=== PATIENT | female | born 1945 | race Caucasian/White ===

== ENCOUNTER 2018-11-12 15:00 | Outpatient (CLI) | payer MEDICARE, OTHER ==
--- NOTE | 2018-11-12 15:49 | RAD ---
THREE VIEWS RIGHT SHOULDER: Comparison: None. History: Shoulder pain. FINDINGS: Three views of the right shoulder shows no evidence of acute fracture or dislocation. No significant degenerative changes are seen. Visualized right thorax is unremarkable. IMPRESSION: No evidence of acute abnormality. POS: C
== END 2018-11-12 15:01 | disposition home or self-care (01) ==
LOC: BICRAD 15:00
PROVIDERS: ATTEND Family Medicine
DX: M25.511 Pain in right shoulder (principal)

== ENCOUNTER 2019-09-20 20:16 | Inpatient (IN) | payer MEDICARE, OTHER ==
[2019-09-20 21:09] LABS: #Lymphocytes 0.7 thou/uL (1.20-3.40); #Neutrophils 5.5 thou/uL (1.40-6.50); %Basophils 0.3 % (0.0-1.0); %Eosinophils 0.1 % (0.0-10.0); %Monocytes 13.2 % (0.0-10.0); %Neutrophils 76.4 % (42.0-75.0); Hemoglobin 12.4 g/dL (12.0-16.0); Mean Corpuscular HGB CONC 33.3 g/dL (32.0-36.0); Mean Corpuscular Hemoglobin 33.3 pg (27.0-31.0); Mean Corpuscular Volume 99.9 fL (78.0-98.0); Mean Platelet Volume 9.2 fL (7.4-10.4); Platelet Count 174 thou/uL (130-400); RBC Distribution Width 14.7 % (11.5-14.5); Red Blood Cell (RBC) Count 3.72 mill/uL (4.20-5.40); White Blood Cell (WBC) Count 7.2 thou/uL (4.8-10.8)
--- NOTE | 2019-09-20 21:24 | RAD ---
FOUR VIEWS RIGHT KNEE: 09/20/19 COMPARISON: None. HISTORY: Slipped out of bed this evening with right knee pain. FINDINGS: Four views of the right knee shows no evidence of acute fracture or dislocation. Moderate to severe t ricompartmental joint space narrowing and osteophyte formation is seen, greatest in the lateral femor otibial compartment. No knee effusion is seen. IMPRESSION: Severe right knee osteoarthritis without acute osseous abnormality. POS: EAA
[2019-09-20 21:29] LABS: Bacteria/HPF 4+ HPF (None Seen); Bilirubin Negative (Negative); Blood, Urine 2+ (Negative); Clarity Extra Turbid (Clear); Glucose, Urine (Dipstick) Normal (Negative); Leukocyte 500 Leu/uL (Negative); Nitrite 2+ (Negative); Protein, Urine (Dipstick) 70 mg/dL (Neg-Trace); RBC/HPF 21-50 HPF (0-3); Squamous Epithelial None Seen HPF (0-3); Urobilinogen Normal mg/dL (Less than 2); WBC/HPF Greater than 50 HPF (0-3)
--- NOTE | 2019-09-20 21:34 | RAD ---
SINGLE VIEW OF THE CHEST: 09/20/19 COMPARISON: 06/02/15 HISTORY: Slipped out of bed this evening. Fever and chills. FINDINGS: Single view of the chest shows an enlarged cardiomediastinal silhouette. Increased interstitial pat ngs are present. There is no evidence of consolidation, mass, or pleural effusion. Degenerative mcmillan es are seen in the spine. IMPRESSION: Cardiomegaly. POS: EAA
[2019-09-20 21:43] LABS: ALT (SGPT) Less than 7 U/L (8-55); AST (SGOT) 9 U/L (5-34); Albumin 4.2 g/dL (3.4-4.8); Alkaline Phosphatase 78 U/L (40-110); Anion Gap 13 mmol/L (10-20); BUN (Urea Nitrogen) 19 mg/dL (9.8-20.1); Bilirubin, Total 0.6 mg/dL (0.2-1.2); CK (CPK) 27 U/L (29-168); Calc. Creatinine Clearance 0 mL/min (70-130); Calcium 9.2 mg/dL (7.8-10.44); Carbon Dioxide 26 mmol/L (23-31); Chloride 102 mmol/L (98-107); Estimated GFR-MDRD 75; Globulin 2.3 g/dL (2.4-3.5); Glucose 117 mg/dL (83-110); Potassium 4.3 mmol/L (3.5-5.1); Protein, Total 6.5 g/dL (6.0-8.3); Sodium 137 mmol/L (136-145)
[2019-09-20] MEDS ORDERED: cefTRIAXone\\ROCEPHIN 2 GM VIAL ONE (21:45)
[2019-09-20] MEDS ORDERED: Vancomycin 1 GM/200 ML BAG ONE (21:46)
--- NOTE | 2019-09-20 22:32 | PDOC.FPRHP ---
- History of Present Illness Chief Complaint: Fever History of Present Illness: This is a 74 yo female with a pmh parkinsons, asthma, copd, GERD, scooter for mobility who presents to the ER with a cc of fever. She states she was in he usual state of kelvin when she began feeling sick at 6 PM. She reports feeling fevers and chills accompanied by a headache. She denies nausea, vomiting, abdominal pain, changes in senses, dysuria, frequency, CVA tenderness, SOB or suprapubic pain. She states that she does not get UTIs frequently. She denied confusion or neck pain Frozen should from balloon volleyball in November that is still bothering her despite PT and pain cream ED Course: NS 2L Rocephin 2g Vancomycin 1 g - Home Medications Medication Instructions Recorded Confirmed Type Aspirin [Ecotrin] 81 mg PO DAILY 09/20/19 09/20/19 History Carbidopa/Levodopa [Carbidopa-Levo 1 each PO TID 09/20/19 09/20/19 History 10-100 mg Odt] Celecoxib [Celebrex] 100 mg PO DAILY 09/20/19 09/20/19 History Fluticasone/Salmeterol [Advair 1 inh IH BID 09/20/19 09/20/19 History Diskus 100/50] Lidocaine 5% Patch [Lidoderm 5% 1 patch TD DAILY 09/20/19 09/20/19 History Patch] Pantoprazole Sodium 20 mg PO DAILY 09/20/19 09/20/19 History - History PMHx: GERD, COPD, ashthma, parkinson disease PSHx: Cholecystectomy, surgical tubal ligation FHx: noncontributory Social: Denies SARBJIT, lives in independent apartment - Review of Systems General: reports: fever/chills. denies: weight/appetite/sleep changes, night sweats, fatigue Eyes: denies: eye pain, vision changes ENT: denies: nasal congestion, rhinorrhea Respiratory: denies: cough, congestion, shortness of breath, exercise intolerance Cardiovascular: denies: chest pain, palpitation, edema, paroxysmal nocturnal dyspnea, orthopnea Gastrointestinal: denies: nausea, vomiting, diarrhea, constipation, abdominal pain, GI bleeding Genitourinary: denies: incontinence, dysuria, polyuria, discharge Skin: denies: rashes, lesions, jaundice, itching Musculoskeletal: reports: pain (right shoulder), tenderness (right shoulder). denies: stiffness, swelling Neurological: reports: other (headache). denies: numbness, syncope, seizure, weakness Psychological: denies: anxiety, depression - Vital signs BP: 120/84 HR: 111 RR: 24 Tmax: 98.9 Pox: 95% on L Wt: 113 - Physical Exam Constitutional: NAD, awake, alert and oriented, well developed HEENT: normocephalic and atraumatic, PERRLA, EOMI, grossly normal vision, grossly normal hearing, MMM Neck: supple, trachea midline, no JVD Chest: no-tender to palpation Heart: RRR, normal S1/S2, pulses present, no edema, other (2/6 systolic murmur) Lungs: CTAB, no respiratory distress, good air movement, no rales/rhonchi, no wheezing, no retractions Abdomen: soft, non-tender, bowel sounds present, no masses/distention Musculoskeletal: normal structure, normal tone, other (no CVA tenderness) Neurological: no focal deficit, CN II-XII intact Skin: good turgor, capillary refill <2 seconds Heme/Lymphatic: no unusual bruising or bleeding Psychiatric: normal mood and affect FMR H&P: Results - Labs Result Diagrams: 09/21/19 06:19 09/21/19 06:19 Lab results: WBC 7.2 thou/uL (4.8-10.8) 09/20/19 20:50 Hgb 12.4 g/dL (12.0-16.0) 09/20/19 20:50 Hct 37.2 % (36.0-47.0) 09/20/19 20:50 MCV 99.9 fL (78.0-98.0) H 09/20/19 20:50 Plt Count 174 thou/uL (130-400) 09/20/19 20:50 Neutrophils % 76.4 % (42.0-75.0) H 09/20/19 20:50 Sodium 137 mmol/L (136-145) 09/20/19 20:50 Potassium 4.3 mmol/L (3.5-5.1) 09/20/19 20:50 Chloride 102 mmol/L (98-107) 09/20/19 20:50 Carbon Dioxide 26 mmol/L (23-31) 09/20/19 20:50 BUN 19 mg/dL (9.8-20.1) 09/20/19 20:50 Creatinine 0.75 mg/dL (0.6-1.1) 09/20/19 20:50 Glucose 117 mg/dL (83-110) H 09/20/19 20:50 Lactic Acid 0.7 mmol/L (0.5-2.2) 09/20/19 20:50 Calcium 9.2 mg/dL (7.8-10.44) 09/20/19 20:50 Total Bilirubin 0.6 mg/dL (0.2-1.2) 09/20/19 20:50 AST 9 U/L (5-34) 09/20/19 20:50 ALT Less than 7 U/L (8-55) L 09/20/19 20:50 Alkaline Phosphatase 78 U/L (40-110) 09/20/19 20:50 Creatine Kinase 27 U/L (29-168) L 09/20/19 20:50 Serum Total Protein 6.5 g/dL (6.0-8.3) 09/20/19 20:50 Albumin 4.2 g/dL (3.4-4.8) 09/20/19 20:50 Urine Ketones Negative mg/dL (Negative) 09/20/19 21:08 Urine Blood 2+ (Negative) A 09/20/19 21:08 Urine Nitrite 2+ (Negative) A 09/20/19 21:08 Ur Leukocyte Esterase 500 Nakita/uL (Negative) A 09/20/19 21:08 Urine RBC 21-50 HPF (0-3) A 09/20/19 21:08 Urine WBC Greater than 50 HPF (0-3) A 09/20/19 21:08 Ur Squamous Epith Cells None Seen HPF (0-3) 09/20/19 21:08 Urine Bacteria 4+ HPF (None Seen) A 09/20/19 21:08 - Radiology Interpretation Chest x-ray Status: image reviewed by me, report reviewed by me (cardiomegaly) FMR H&P: A/P - Problem List (1) UTI (urinary tract infection) Current Visit: Yes Status: Acute - Plan Acute complicated UTI -Admit to medical -S/P vanc and rocgunnerhin, s/p 2L NS bolus -Starting Zosyn (09/19) -Pending Urine cultures Sepsis 2/2 above -Blood cultures -As above Covid r/o -Pt deemed covid risk based on self quarantine and fever, pending swab COPD, at baseline -Continue home advair GERD -Continue home protonix Parkinson disease -Continue home carbidopa-levodopa Right shoulder pain -Continue celebrex and lidocaine gel Code: Full Prophylaxis: Protonix and lovenox Family: none at bedside Diet: Regular Fluids: 2L LR at 100ml/hr Disposition: DC in 2-3 days PCP: Dr. Varma Addendum - Attending - Attending Attestation Date/Time: 09/21/19 1017 I personally evaluated the patient and discussed the management with Dr. Lyons. I agree with the History, Examination, Assessment and Plan documented above with any addition or exceptions noted below. Seems to be clearly complicated UTI in light of UA. She has relatively few symptoms besides malaise and fever. She does not have cough or sore throat. Continue antibiotics, await cultures.
[2019-09-20] MEDS ORDERED: Ondansetron ODT 4 MG TAB PO PRN (23:29)
[2019-09-20] MEDS ORDERED: Ondansetron PF 4 MG/2 ML Vial IVP PRN (23:29)
[2019-09-20] MEDS ORDERED: Acetaminophen 650 MG Suppository PR PRN (23:29)
[2019-09-20 23:53] VITALS: BMI 38.2
[2019-09-20] MEDS ORDERED: Piperacillin/Tazobactam 4.5 GM in Sodium Chloride 0.9% 100 ML IVPB SCH (23:59)
[2019-09-21] MEDS: Lactated Ringer's 1,000 ML IV SCH ×2 (00:38→07:56)
[2019-09-21] MEDS: Lidocaine 5% Patch TD SCH (00:40)
[2019-09-21] MEDS: Acetaminophen 325 MG TAB PO PRN ×3 (00:40→20:34)
[2019-09-21] MEDS ORDERED: Piperacillin/Tazobactam 3.375 GM in Sodium Chloride 0.9% 100 ML IVPB SCH (06:00)
[2019-09-21] MEDS: Mometasone 100 MCG/Formoterol 5 MCG 120 PUFF INHALER INH SCH ×2 (06:10→18:16)
[2019-09-21 06:30] LABS: Band 4 % (5-11); Hemoglobin 11.7 g/dL (12.0-16.0); Lymphocytes 23 % (21-51); MDiff Complete? YES; Macrocytosis SLIGHT = 6-15 cells (100X) (0-5/hpf); Mean Corpuscular HGB CONC 32.3 g/dL (32.0-36.0); Mean Platelet Volume 8.9 fL (7.4-10.4); Monocytes 14 % (0-10); Neutrophil 59 % (42-75); Platelet Count 140 thou/uL (130-400); Platelet Morphology Comment Appears Adequate; RBC Distribution Width 14.6 % (11.5-14.5); Red Blood Cell (RBC) Count 3.54 mill/uL (4.20-5.40); White Blood Cell (WBC) Count 4.5 thou/uL (4.8-10.8)
[2019-09-21 06:48] LABS: Anion Gap 11 mmol/L (10-20); BUN (Urea Nitrogen) 14 mg/dL (9.8-20.1); Calc. Creatinine Clearance 114 mL/min (70-130); Calcium 8.3 mg/dL (7.8-10.44); Carbon Dioxide 27 mmol/L (23-31); Chloride 109 mmol/L (98-107); Estimated GFR-MDRD 89; Glucose 101 mg/dL (83-110); Potassium 3.8 mmol/L (3.5-5.1); Sodium 143 mmol/L (136-145)
--- NOTE | 2019-09-21 07:18 | PDOC.FM ---
- Subjective Subjective: pt resting in bed, reports back pain associated with laying in bed. no cva tenderness, feeling feverish. - Objective Vital Signs & Weight: Vital Signs (12 hours) Temp Pulse Resp BP Pulse Ox 09/21/19 06:10 95 09/21/19 04:00 98.6 F 99 18 122/76 95 09/21/19 01:10 98.7 F 96 09/20/19 23:05 99.7 F H 106 H 18 112/68 96 Weight Weight 97.8 kg I&O: 09/20/19 09/21/19 09/22/19 06:59 06:59 06:59 Intake Total 900 Output Total 1500 Balance -600 Result Diagrams: 09/21/19 06:19 09/21/19 06:19 Phys Exam - Physical Examination Constitutional: NAD HEENT: moist MMs Neck: supple Gastrointestinal: soft, non-tender Musculoskeletal: pulses present Neurological: moves all 4 limbs Psychiatric: normal affect Skin: no rash Dx/Plan (1) COPD (chronic obstructive pulmonary disease) Status: Acute (2) Parkinsons Code(s): G20 - PARKINSON'S DISEASE Status: Acute (3) UTI (urinary tract infection) Status: Acute - Plan Plan: sepsis 2/2 UTI -fever, tachycardia, + UA on admission. vanc and rocephin given -continue rocephin -Pending U/Bcx, procal Covid r/o -Pt deemed covid risk based on self quarantine and fever, pending swab COPD, at baseline -Continue home advair GERD -Continue home protonix Parkinson disease -Continue home carbidopa-levodopa Right shoulder pain -Continue celebrex and lidocaine gel Code: Full Prophylaxis: lovenox Disposition: continue abx until cx results, then likely dc, 1-2 days. Addendum - Attending - Attending Attestation Date/Time: 09/21/19 [id number] I personally evaluated the patient and discussed the management with Dr. Jackman. I agree with the History, Examination, Assessment and Plan documented above with any addition or exceptions noted below. Patient here for sepsis 2/2 suspected UTI. Continue abx, await cultures. COVID pending but low suspicion for infection.
[2019-09-21] MEDS: CeleCOXIB 100 MG CAP PO SCH (07:55)
[2019-09-21] MEDS: Aspirin 81 mg Enteric Coated Tablet PO SCH (07:56)
[2019-09-21] MEDS: Enoxaparin Sodium 40 MG/0.4 ML SYRINGE SC SCH (07:56)
[2019-09-21] MEDS ORDERED: Lidocaine 5% Patch TD SCH (09:00)
[2019-09-21] MEDS: Carbidopa/Levodopa 10-100 mg Tablet PO SCH ×3 (10:04→20:34)
[2019-09-21] MEDS ORDERED: Lidocaine Patch Removal 1 EACH TOP SCH (13:00)
--- NOTE | 2019-09-21 13:03 | EKG ---
Test Reason : Blood Pressure : / mmHG Vent. Rate : 122 BPM Atrial Rate : 122 BPM P-R Int : 144 ms QRS Dur : 064 ms QT Int : 302 ms P-R-T Axes : 073 047 075 degrees QTc Int : 430 ms Sinus tachycardia Otherwise normal ECG Confirmed by LOLI RAY DO ([id number]), photograph editor JESUS SHANE ([id number]) on 09/21/2019 1:02:58 PM Referred By: LESTER RAY Confirmed By:LOLI RAY DO
[2019-09-21 16:32] LABS: SARS-CoV-2 MS2 Positive; SARS-CoV-2 N Gene Negative; SARS-CoV-2 S Gene Negative; SARS-CoV-2 orf1ab Negative
[2019-09-21] MEDS ORDERED: Escitalopram Oxalate 20 mg Tablet PO SCH (21:30)
[2019-09-21] MEDS ORDERED: Amantadine HCl 100 mg Capsule PO SCH (21:30)
[2019-09-21] MEDS ORDERED: cefTRIAXone\\ROCEPHIN 1 GM in Sodium Chloride 0.9% 100 ML IVPB SCH (22:00)
[2019-09-22] MEDS: Lidocaine 5% Patch TD SCH (03:27)
[2019-09-22] MEDS: Mometasone 100 MCG/Formoterol 5 MCG 120 PUFF INHALER INH SCH (07:02)
--- NOTE | 2019-09-22 07:18 | PDOC.FM ---
- Subjective Subjective: pt reports back pain that is still bothering her, would really like to go home. denies fever/chills. lower abdominal pain - Objective Vital Signs & Weight: Vital Signs (12 hours) Temp Pulse Resp BP Pulse Ox 09/22/19 04:00 99.2 F 97 18 110/59 L 94 L 09/22/19 00:00 99.5 F 103 H 20 123/73 94 L 09/21/19 20:00 96 Weight Admit Weight 97.522 kg Weight 97.8 kg I&O: 09/21/19 09/22/19 09/23/19 06:59 06:59 06:59 Intake Total 900 Output Total 1500 1100 Balance -600 -1100 Result Diagrams: 09/22/19 05:47 09/22/19 05:48 Phys Exam - Physical Examination Constitutional: NAD HEENT: moist MMs Neck: no JVD Gastrointestinal: non-tender, no distention Musculoskeletal: pulses present Neurological: moves all 4 limbs Psychiatric: normal affect Skin: no rash Dx/Plan (1) COPD (chronic obstructive pulmonary disease) Status: Acute (2) Parkinsons Code(s): G20 - PARKINSON'S DISEASE Status: Acute (3) UTI (urinary tract infection) Status: Acute - Plan Plan: sepsis 2/2 UTI -fever, tachycardia, + UA on admission. vanc and rocephin given -continue rocephin -Pending U/Bcx, procal neg Covid r/o -neg COPD, at baseline -Continue home advair GERD -Continue home protonix Parkinson disease -Continue home carbidopa-levodopa Right shoulder pain -Continue celebrex and lidocaine gel Code: Full Prophylaxis: lovenox Disposition: await sensitivities, transition to oral. Addendum - Attending - Attending Attestation Date/Time: 09/22/19 1016 I personally evaluated the patient and discussed the management with Dr. Jackman. I agree with the History, Examination, Assessment and Plan documented above with any addition or exceptions noted below. Patient here for sepsis 2/2 UTI. She is improved. Waiting for sensitivities and hopefully discharging home later today on oral abx.
[2019-09-22 07:34] LABS: Hemoglobin 11.9 g/dL (12.0-16.0); Mean Corpuscular HGB CONC 32.6 g/dL (32.0-36.0); Mean Corpuscular Hemoglobin 33.4 pg (27.0-31.0); Mean Platelet Volume 9.5 fL (7.4-10.4); Platelet Count 149 thou/uL (130-400); RBC Distribution Width 14.5 % (11.5-14.5); Red Blood Cell (RBC) Count 3.57 mill/uL (4.20-5.40); White Blood Cell (WBC) Count 3.8 thou/uL (4.8-10.8)
[2019-09-22] MEDS ORDERED: Polyethylene Glycol 3350 17 GM Packet PO PRN (07:42)
[2019-09-22 07:51] LABS: Anion Gap 13 mmol/L (10-20); BUN (Urea Nitrogen) 10 mg/dL (9.8-20.1); Calc. Creatinine Clearance 121 mL/min (70-130); Calcium 8.6 mg/dL (7.8-10.44); Carbon Dioxide 25 mmol/L (23-31); Chloride 107 mmol/L (98-107); Estimated GFR-MDRD Greater than 90; Glucose 90 mg/dL (83-110); Potassium 3.9 mmol/L (3.5-5.1); Sodium 141 mmol/L (136-145)
[2019-09-22] MEDS: Aspirin 81 mg Enteric Coated Tablet PO SCH (08:19)
[2019-09-22] MEDS: Enoxaparin Sodium 40 MG/0.4 ML SYRINGE SC SCH (08:20)
[2019-09-22] MEDS: CeleCOXIB 100 MG CAP PO SCH (08:20)
[2019-09-22] MEDS ORDERED: Amantadine HCl 100 mg Capsule PO SCH (09:00)
[2019-09-22] MEDS ORDERED: Lidocaine 5% Patch TD SCH (09:00)
[2019-09-22 09:22] LABS: Band 2 % (5-11); Large Platelets SLIGHT; Lymphocytes 31 % (21-51); MDiff Complete? YES; Monocytes 10 % (0-10); Neutrophil 56 % (42-75); Platelet Morphology Comment Appears Adequate; Reactive Lymphocytes 1 % (0-10)
[2019-09-22 11:38] VITALS: BP 101/56; TEMP 99.5
[2019-09-22] MEDS: Carbidopa/Levodopa 10-100 mg Tablet PO SCH (12:46)
[2019-09-22] MEDS ORDERED: Escitalopram Oxalate 20 mg Tablet PO SCH (21:00)
[2019-09-22] MEDS ORDERED: Lidocaine Patch Removal 1 EACH TOP SCH (21:00)
== END 2019-09-22 14:57 | disposition home or self-care (01) | DRG 872 ==
LOC: ERS 20:16 → T4-B 23:41
PROVIDERS: ADMIT Emergency Medicine; ATTEND Emergency Medicine
DX: A41.9 Sepsis, unspecified organism (principal); N39.0 Urinary tract infection, site not specified; Z20.828 Contact with and (suspected) exposure to other viral communicable diseases; G20 Parkinson's disease; J44.9 Chronic obstructive pulmonary disease, unspecified; M25.561 Pain in right knee; M25.511 Pain in right shoulder; G89.29 Other chronic pain; K21.9 Gastro-esophageal reflux disease without esophagitis; Z90.49 Acquired absence of other specified parts of digestive tract; Z98.51 Tubal ligation status; Z79.899 Other long term (current) drug therapy; Z79.82 Long term (current) use of aspirin
CPT/HCPCS: 36415; 51701; 71045; 80048; 80053; 81003; 81015; 82550; 83605; 84145; 84484; 85025; 87040; 87077; 87086; 87186; 87635; 87804; 93005; 94760; 96365; A4353; J0696; J1650; J2543; J3370; J3490; U0003

== ENCOUNTER 2019-10-11 22:02 | Inpatient (IN) | payer MEDICARE ==
[~2019-10-11 22:02] MED LIST: Heparin 1,000 UNITS/ML VIAL ONE; Iopamidol-370 76% 500 ML 1 ML ONE
[2019-10-11 22:35] LABS: Mean Corpuscular HGB CONC 33.4 g/dL (32.0-36.0); Mean Corpuscular Hemoglobin 33.1 pg (27.0-31.0); Mean Corpuscular Volume 99.3 fL (78.0-98.0); Platelet Count 131 thou/uL (130-400); RBC Distribution Width 14.9 % (11.5-14.5); Red Blood Cell (RBC) Count 3.92 mill/uL (4.20-5.40); White Blood Cell (WBC) Count 3.8 thou/uL (4.8-10.8)
[2019-10-11] MEDS ORDERED: cefTRIAXone\\ROCEPHIN 2 GM VIAL ONE (22:35)
[2019-10-11 22:49] LABS: Bacteria/HPF None Seen HPF (None Seen); Bilirubin Negative (Negative); Blood, Urine 1+ (Negative); Clarity Clear (Clear); Glucose, Urine (Dipstick) Normal (Negative); Leukocyte 500 Leu/uL (Negative); Nitrite Negative (Negative); Protein, Urine (Dipstick) Negative (Neg-Trace); Squamous Epithelial 0-3 HPF (0-3); Urobilinogen Normal mg/dL (Less than 2); WBC/HPF Greater than 50 HPF (0-3)
[2019-10-11 22:50] LABS: ALT (SGPT) 48 U/L (8-55); AST (SGOT) 72 U/L (5-34); Albumin 4.2 g/dL (3.4-4.8); Alkaline Phosphatase 102 U/L (40-110); Anion Gap 13 mmol/L (10-20); BUN (Urea Nitrogen) 13 mg/dL (9.8-20.1); Bilirubin, Total 1.4 mg/dL (0.2-1.2); Calc. Creatinine Clearance 0 mL/min (70-130); Calcium 9.3 mg/dL (7.8-10.44); Carbon Dioxide 26 mmol/L (23-31); Chloride 102 mmol/L (98-107); Estimated GFR-MDRD 86; Globulin 2.4 g/dL (2.4-3.5); Glucose 121 mg/dL (83-110); Potassium 3.9 mmol/L (3.5-5.1); Protein, Total 6.6 g/dL (6.0-8.3); Sodium 137 mmol/L (136-145)
[2019-10-11 22:53] LABS: Band 11 % (5-11); Lymphocytes 5 % (21-51); MDiff Complete? YES; Monocytes 7 % (0-10); Neutrophil 76 % (42-75); Reactive Lymphocytes 1 % (0-10)
--- NOTE | 2019-10-11 22:55 | RAD ---
FRONTAL RADIOGRAPH CHEST: Date: 10/11/2019. COMPARISON: 09/20/2019. HISTORY: Urinary tract infection, fever. FINDINGS: Heart and mediastinal contours are stable. Stable increased linear interstitial density with pulmonar y hyperinflation. No focal consolidation or alveolar edema. IMPRESSION: No focal consolidation or alveolar edema. POS: [facility]
[2019-10-11] MEDS ORDERED: Enoxaparin Sodium 40 MG/0.4 ML SYRINGE SC SCH (23:45)
[2019-10-11] MEDS ORDERED: Ondansetron PF 4 MG/2 ML Vial IVP PRN (23:50)
[2019-10-11] MEDS ORDERED: Ondansetron ODT 4 MG TAB PO PRN (23:50)
[2019-10-11] MEDS ORDERED: Acetaminophen 650 MG Suppository PR PRN (23:50)
[2019-10-11] MEDS ORDERED: Calcium Carbonate 500 MG ChewTAB PO PRN (23:50)
[2019-10-11] MEDS ORDERED: Morphine 4 MG/ML VIAL ONE (23:53)
[2019-10-11] MEDS ORDERED: Vancomycin 1 GM/200 ML BAG ONE (23:53)
[2019-10-12] MEDS ORDERED: Lidocaine 5% Patch TD SCH (01:00)
--- NOTE | 2019-10-12 02:18 | PDOC.FPRHP ---
- History of Present Illness Chief Complaint: Fever, Back Pain History of Present Illness: 74 yo F comes in with concerns for Fever, UTI and back pain. Pt was recently d/ c for sepsis 2/2 UTI on 09/21. Urine cx then showed MDR e. coli. It was sens to bactrim which she was sent home with. Pt reports taking abx and getting better. States then 3 days later sx's returned. Pt followed up who px macrobid which again cx showed sens to. Pt reports continued to have fevers and get worse and thus presented to [facility]. Pt reports having lots of back pain at this time. Reports as sharp. Reports having fever. Pt reports having burning with urination. Denies any blood in urine. Denies any n/v/d/c. Denies any chest pain or SOB. Denies any rash or leg swelling. Pt reports having cough but it is chronic from her COPD. - Allergies/Adverse Reactions Allergies Allergy/AdvReac Type Severity Reaction Status Date / Time No Known Drug Allergies Allergy Verified 10/12/19 01:54 - Home Medications Medication Instructions Recorded Confirmed Type Aspirin [Ecotrin Low Strength] 81 mg PO DAILY 09/20/19 10/12/19 History Carbidopa/Levodopa [Carbidopa-Levo 0.5 tab PO TID 09/20/19 10/12/19 History 10-100 mg Odt] Celecoxib [Celebrex] 200 mg PO DAILY 09/20/19 10/12/19 History Pantoprazole Sodium 40 mg PO DAILY 09/20/19 10/12/19 History Amantadine HCl [Amantadine] 100 mg PO BID 09/21/19 10/12/19 History Escitalopram Oxalate [Lexapro] 10 mg PO HS 09/21/19 10/12/19 History Carbidopa/Levodopa 1 tab PO TID 10/12/19 10/12/19 History [Carbidopa-Levodopa 25-100 Tab] Ipratropium/Albuterol Sulfate 1 puff INH QID 10/12/19 10/12/19 History [Combivent Respimat Inhal [place]] Nitrofurantoin Monohyd/M-Cryst 100 mg PO BID 10/12/19 10/12/19 History [Macrobid] - History PMHx: GERD, COPD, ashthma, parkinson's disease PSHx: Cholecystectomy, surgical tubal ligation FHx: noncontributory Social: Denies any drinking, illicit drug use or current smoking, smoked in past. Lives independent in apartment. - Review of Systems General: reports: fever/chills. denies: weight/appetite/sleep changes, night sweats Eyes: denies: eye pain, vision changes ENT: denies: nasal congestion, rhinorrhea Respiratory: reports: cough (chronic cough). denies: congestion, shortness of breath, exercise intolerance Cardiovascular: denies: chest pain, palpitation, edema, orthopnea Gastrointestinal: denies: nausea, vomiting, diarrhea, constipation, abdominal pain, GI bleeding Genitourinary: reports: dysuria, polyuria. denies: incontinence Skin: denies: rashes, lesions, jaundice Musculoskeletal: reports: pain (reports back pain). denies: tenderness, stiffness, swelling Neurological: denies: numbness, weakness Psychological: denies: anxiety, depression - Vital signs BP: [178/75] HR: [122] RR: [30] Tmax: [101.8] Pox: [98]% on [RA] Wt: [96kg] - Physical Exam Constitutional: awake, alert and oriented, well developed -Constitutional: Pt in some distress from pain. Pt moving around in bed and can't get comfortable HEENT: normocephalic and atraumatic, grossly normal vision, grossly normal hearing Neck: supple, FROM, trachea midline Heart: no murmurs/rubs/gallops, pulses present -Heart: tachycadic, regular rhythm Lungs: CTAB, no respiratory distress, good air movement, no rales/rhonchi, no wheezing, no retractions Abdomen: soft, non-tender, bowel sounds present, no masses/distention, no hernias -Abdomen: Taylor sign negative, CVA tenderness noted bilaterally Musculoskeletal: ROM grossly normal Neurological: no focal deficit, normal sensation Skin: no rash/lesions, good turgor Heme/Lymphatic: no unusual bruising or bleeding Psychiatric: good judgment and insight, intact recent and remote memory FMR H&P: Results - Labs Result Diagrams: 10/12/19 03:56 10/12/19 03:56 Lab results: WBC 3.8 thou/uL (4.8-10.8) L 10/11/19 22:19 Hgb 13.0 g/dL (12.0-16.0) 10/11/19 22:19 Hct 38.9 % (36.0-47.0) 10/11/19 22:19 MCV 99.3 fL (78.0-98.0) H 10/11/19 22:19 Plt Count 131 thou/uL (130-400) 10/11/19 22:19 Band Neuts % (Manual) 11 % (5-11) 10/11/19 22:19 Sodium 137 mmol/L (136-145) 10/11/19 22:19 Potassium 3.9 mmol/L (3.5-5.1) 10/11/19 22:19 Chloride 102 mmol/L (98-107) 10/11/19 22:19 Carbon Dioxide 26 mmol/L (23-31) 10/11/19 22:19 BUN 13 mg/dL (9.8-20.1) 10/11/19 22:19 Creatinine 0.67 mg/dL (0.6-1.1) 10/11/19 22:19 Glucose 121 mg/dL (83-110) H 10/11/19 22:19 Lactic Acid 1.1 mmol/L (0.5-2.2) 10/11/19 22:19 Calcium 9.3 mg/dL (7.8-10.44) 10/11/19 22:19 Total Bilirubin 1.4 mg/dL (0.2-1.2) H 10/11/19 22:19 AST 72 U/L (5-34) H 10/11/19 22:19 ALT 48 U/L (8-55) 10/11/19 22:19 Alkaline Phosphatase 102 U/L (40-110) 10/11/19 22:19 Serum Total Protein 6.6 g/dL (6.0-8.3) 10/11/19 22:19 Albumin 4.2 g/dL (3.4-4.8) 10/11/19 22:19 Urine Ketones 20 mg/dL (Negative) A 10/11/19 22:30 Urine Blood 1+ (Negative) A 10/11/19 22:30 Urine Nitrite Negative (Negative) 10/11/19 22:30 Ur Leukocyte Esterase 500 Nakita/uL (Negative) A 10/11/19 22:30 Urine RBC 11-20 HPF (0-3) A 10/11/19 22:30 Urine WBC Greater than 50 HPF (0-3) A 10/11/19 22:30 Ur Squamous Epith Cells 0-3 HPF (0-3) 10/11/19 22:30 Urine Bacteria None Seen HPF (None Seen) 10/11/19 22:30 - Radiology Interpretation CT scan - abdomen Status: image reviewed by me, pending Additional comment: Kidneys appear to be enlarged bilaterally. Possibly some component of hydronephrosis. CT scan - pelvis Status: image reviewed by me, pending Chest x-ray Status: image reviewed by me, report reviewed by me Additional comment: No focal consolidation or alveolar edema FMR H&P: A/P - Problem List (1) Sepsis Current Visit: Yes Status: Acute Code(s): A41.9 - SEPSIS, UNSPECIFIED ORGANISM (2) Pyelonephritis due to Escherichia coli Current Visit: Yes Status: Acute Code(s): N12 - TUBULO-INTERSTITIAL NEPHRITIS, NOT SPCF ACUTE OR CHRONIC; B96.20 - UNSP ESCHERICHIA COLI THE CAUSE OF DISEASES CLASSD ELSWHR (3) COPD (chronic obstructive pulmonary disease) Current Visit: No Status: Acute (4) Parkinsons Current Visit: No Status: Acute Code(s): G20 - PARKINSON'S DISEASE - Plan #Sepsis 2/2 MDR E.coli pyelonephritis -Pt has fever and CVA tenderness. Cx from recent hospitlization showed MDR E. coli on 09/20/19. Pt seems to have never fully resolved UTI from then. -Pt has fever, tachycardia and tachypnea upon presentation. \ -Given 2L NS bolus in ER. will give one more liter LR for 30mg/kg sepsis bolus. Will continue LR IVF @ 100 ml/hr -CT abdomen/pelvis ordered- official read pending -WBC 3.8 -Procal pending -Blood and urine cx ordered -Meropenem IV abx to cover for above based on sensitivities -consider ID consult in AM -Morphine IV and lidocaine TD for back pain #Parkinsons -continue home meds #COPD -Duonebs prn for SOB -continue home inhalers #GERD -protonix #Elevated BP w/o dx of HTN -continue to monitor pressures. Likely related to pain. Consider starting meds if continues to stay elevated DVT ppx: Lovenox Diet: Regular Dispo: Tx with meropenem abx for MDR E. coli. Consider ID consult in AM. Trend labs. Continue to tx pain as needed. Await blood and urine cx. Addendum - Attending - Attending Attestation Date/Time: 10/12/19 8290 I personally evaluated the patient and discussed the management with Dr. [] I agree with the History, Examination, Assessment and Plan documented above with any addition or exceptions noted below. right flank pain on exam. CT negative. ID consulted. VSS. Will await recs.
[2019-10-12] MEDS: Acetaminophen 325 MG TAB PO PRN (02:31)
[2019-10-12] MEDS ORDERED: Lactated Ringer's 1,000 ML IV SCH (02:45)
[2019-10-12 04:11] VITALS: BMI 37.6
[2019-10-12 04:24] LABS: #Lymphocytes 0.3 thou/uL (1.20-3.40); #Monocytes 0.3 thou/uL (0.11-0.59); #Neutrophils 2.4 thou/uL (1.40-6.50); %Eosinophils 0.7 % (0.0-10.0); %Lymphocytes 8.9 % (21.0-51.0); %Monocytes 10.1 % (0.0-10.0); %Neutrophils 80.4 % (42.0-75.0); Hemoglobin 10.9 g/dL (12.0-16.0); Mean Corpuscular HGB CONC 33.9 g/dL (32.0-36.0); Mean Corpuscular Hemoglobin 33.8 pg (27.0-31.0); Mean Corpuscular Volume 99.7 fL (78.0-98.0); Mean Platelet Volume 9.4 fL (7.4-10.4); Platelet Count 128 thou/uL (130-400); RBC Distribution Width 14.9 % (11.5-14.5); Red Blood Cell (RBC) Count 3.22 mill/uL (4.20-5.40)
[2019-10-12] MEDS: Morphine 4 MG/ML VIAL SLOW IVP PRN ×4 (04:40→21:23)
[2019-10-12 04:50] LABS: ALT (SGPT) 66 U/L (8-55); AST (SGOT) 86 U/L (5-34); Albumin 3.5 g/dL (3.4-4.8); Alkaline Phosphatase 104 U/L (40-110); Anion Gap 10 mmol/L (10-20); BUN (Urea Nitrogen) 10 mg/dL (9.8-20.1); Bilirubin, Total 1.1 mg/dL (0.2-1.2); Calc. Creatinine Clearance 130 mL/min (70-130); Calcium 8.1 mg/dL (7.8-10.44); Carbon Dioxide 26 mmol/L (23-31); Chloride 108 mmol/L (98-107); Estimated GFR-MDRD Greater than 90; Glucose 105 mg/dL (83-110); Potassium 3.7 mmol/L (3.5-5.1); Protein, Total 5.5 g/dL (6.0-8.3); Sodium 140 mmol/L (136-145)
[2019-10-12] MEDS: MEROPENEM 1 GM/50 ML 1 GM in Premix Bag 1 BAG IVPB SCH ×3 (05:00→21:15)
[2019-10-12] MEDS ORDERED: Meropenem 1 GM in Sodium Chloride 0.9% 100 ML IVPB SCH (06:00)
[2019-10-12] MEDS: Mometasone 100 MCG/Formoterol 5 MCG 120 PUFF INHALER INH SCH ×2 (07:32→20:07)
[2019-10-12] MEDS ORDERED: Enoxaparin Sodium 40 MG/0.4 ML SYRINGE SC SCH (09:00)
[2019-10-12] MEDS: Aspirin 81 mg Enteric Coated Tablet PO SCH (09:05)
[2019-10-12] MEDS: Amantadine HCl 100 mg Capsule PO SCH ×2 (09:05→21:14)
[2019-10-12] MEDS: Carbidopa/Levodopa 10-100 mg Tablet PO SCH ×3 (09:05→21:15)
--- NOTE | 2019-10-12 09:25 | CT ---
PRELIMINARY REPORT/[facility]/EMERGENCY AFTER HOURS PROCEDURE: EXAM: CT Abdomen and Pelvis with Intravenous Contrast CLINICAL HISTORY: Patient presented febrile with feeling weak and lightheaded she reported just not feeling well today she arrived by EMS she does report she lives at [facility] does report pain with urinati on has had a UTI and hospitalization within the past month reports last UTI was 5 days ago she report s her right arm is dysfunctional and this is not new she does feel weak and needs assistance more marybel n usual TECHNIQUE: Axial computed tomography images of the abdomen and pelvis with intravenous contrast. CONTRAST: With; ISOVUE 370,100mL COMPARISON: None provided. FINDINGS: LUNG BASES: No basilar airspace consolidation or pleural effusion. Mild basilar atelectasis. Small pericardial effusion. LIVER: Unremarkable. GALLBLADDER AND BILE DUCTS: Unremarkable. No calcified stone. No ductal dilation. PANCREAS: Unremarkable. SPLEEN: Unremarkable. ADRENAL GLANDS: Mild prominence of the bilateral adrenal glands without discrete focal nodule. KIDNEYS, URETERS, AND BLADDER: Unremarkable. No hydronephrosis or nephrolithiasis. No ureteral or bladder calculi. STOMACH AND BOWEL: No obstruction. No wall thickening. Scattered colonic diverticuli. No CT evidence of colitis or acu te diverticulitis. APPENDIX: No CT evidence for appendicitis. PERITONEUM: No free fluid. No free air. LYMPH NODES: No lymphadenopathy. REPRODUCTIVE: Unremarkable as visualized. VASCULATURE: No aortic aneurysm. BONES: No fracture or suspicious osseous abnormality. Multilevel degenerative changes of the spine. ABDOMINAL WALL AND SOFT TISSUES: Unremarkable. IMPRESSION: No acute intra-abdominal or pelvic abnormality. Scattered colonic diverticuli without evidence of acute diverticulitis. ELECTRONICALLY SIGNED BY: Sukhwinder Hernandez DO Oct 12, 2019 12:19:13 AM CDT This report is intended for review by the ordering physician only, in accordance of law. If you recei ve this report in error, please call [facility] at [phone]. FINAL REPORT CT ABDOMEN AND PELVIS WITH CONTRAST: No acute intra-abdominal process. I am in agreement with the preliminary report issued by [facility]. POS: [facility]
[2019-10-12] MEDS ORDERED: Lidocaine Patch Removal 1 EACH TOP SCH (14:00)
--- NOTE | 2019-10-12 14:52 | EKG ---
Test Reason : Blood Pressure : / mmHG Vent. Rate : 122 BPM Atrial Rate : 122 BPM P-R Int : 162 ms QRS Dur : 058 ms QT Int : 312 ms P-R-T Axes : 076 062 079 degrees QTc Int : 444 ms Sinus tachycardia with Premature supraventricular complexes Otherwise normal ECG Confirmed by PEDRO BUSCH ([id number]), map editor JESUS SHANE ([id number]) on 10/12/2019 2:51:53 PM Referred By: Confirmed By:PEDRO BUSCH
--- NOTE | 2019-10-12 17:42 | CON ---
DATE OF CONSULTATION: 10/12/2019 REASON FOR CONSULTATION: Urinary infection. HISTORY OF PRESENT ILLNESS: A 74-year-old with history of Parkinson disease, asthma, COPD, and osteoarthritis with severe functional impairment and wheelchair-bound state, who was initially admitted on 09/19 because of fever and nausea. She had chills and a headache. Did not have any abdominal pain. No respiratory symptoms. Did not have any dysuria or suprapubic pain. No mental state changes. On arrival, her temperature was normal, O2 saturations were 95. The exam was not particularly remarkable. White cell count was 4.5, hemoglobin 11.7, and platelets of 140. Creatinine was normal. A urinalysis with greater than 50 wbc 's. She had a negative COVID test. A urine culture showed an E coli and alpha- hemolytic strep. The E coli had an ESBL phenotype. The organism was susceptible to Bactrim as well as nitrofurantoin among other agents, but was resistant to cephalosporins. The impression then was UTI, complicated. She was given Rocephin and vancomycin , then Zosyn, and she was discharged 2 days later. She was complaining of some back pain, but did not have any more fever, and she was transitioned to oral antimicrobial therapy. I believe she was transitioned to oral Bactrim based on susceptibility results. She lives at [facility] and they have implemented strict measures to avoid community spread of COVID, and nobody has acquired it reportedly, but she had recurrence of symptoms with dysuria, fever, and general malaise, and apparently, she had been given oral nitrofurantoin by her primary care physician, but it did not help, so she started having the above symptoms and came back to the emergency room. This time, she had back pain and temperature was 101.8, BP 170/70, heart rate was 122, O2 saturations were 98. She appeared uncomfortable in bed. White cell count was 3.0, hemoglobin 10.9, and platelets 128,000. Creatinine 0.58. Urinalysis greater than 50 wbc's again. She had an abdomen and pelvis CT and this showed no pelvic abnormality, no diverticulitis, the kidneys were fine without obstruction, no osseous abnormalities noted. The patient had a chest x-ray without any evidence of infiltrates. The patient has been treated with meropenem with improvement. She is feeling much better. Denies any headaches. The vision is about the same as usual, requiring correction. Oral cavity normal. She has dentures. No respiratory symptoms. The dysuria has resolved. The back pain has improved. No joint symptoms except for the chronic right shoulder osteoarthrosis and severe left knee osteoarthrosis. MEDICAL HISTORY: 1. Parkinson disease. 2. Osteoarthrosis with severe functional impairment. 3. COPD. 4. GERD. SURGICAL HISTORY: 1. Cholecystectomy. 2. Tubal ligation. FAMILY HISTORY: Noncontributory. SOCIAL HISTORY: Lives in [place]. Former smoker. No alcoholic beverage use. CURRENT MEDICATIONS: In addition to the meropenem, she is on: 1. P.r.n. medications. 2. Enoxaparin. 3. Lexapro. 4. Mometasone. 5. Morphine. 6. Zofran. 7. Protonix. PHYSICAL EXAMINATION: VITAL SIGNS: T-max 100.3, BP 120/50, pulse 93, respirations 18, and O2 saturation 95. SKIN: The patient has a peripheral IV access. She is voiding in the diaper. No lymphadenopathy. HEENT: Ocular movements conjugate. Oral cavity with dentures. NECK: Supple. LUNGS: Symmetric air entry. HEART: S1 and S2. Regular rate. ABDOMEN: Soft without tenderness. No bladder distention. EXTREMITIES: Marked osteoarthrosis of the right shoulder with pretty much a frozen shoulder. She has severe osteoarthrosis in the left knee. Some osteoarthrosis in the right knee. She moves the toes. She has some rigidity. No edema. Pulses 1+ in dorsalis pedis. Plantar responses are flexor. No clonus. NEUROLOGIC: She is awake, oriented, fairly decent recollection. Speech is normal and impeded. LABORATORY DATA: She does have some neutrophilia, but she does have a decreased total white cell count, quite significant lymphocytopenia. Blood cultures negative. Urine culture, no growth at 12 hours. ASSESSMENT: 1. Parkinson disease. 2. Chronic obstructive pulmonary disease. 3. Persistence of infection of the urinary tract, likely pyelonephritis with an extended-spectrum beta-lactamase organism. DISCUSSION: She failed oral treatment with Bactrim, which is a fairly common experience. Usually, Bactrim has to be continued for at least 10 days after discharge to be effective in treating pyelonephritis. In her case,She has an ESBL organism and will require carbapenem associated with the best outcome for these sort of pathogens. I would treat her for another 2 weeks at least and PICC line placement and arrange for treatment in the outpatient setting, hopefully with Invanz. She does not have any evidence of urological complications, so she is not going to need any intervention otherwise. I think it looks like she is emptying her bladder adequately. Job ID: [id number] MTDD
[2019-10-12] MEDS: Escitalopram Oxalate 20 mg Tablet PO SCH (21:15)
[2019-10-12] MEDS: Enoxaparin Sodium 40 MG/0.4 ML SYRINGE SC SCH (21:15)
[2019-10-13] MEDS: MEROPENEM 1 GM/50 ML 1 GM in Premix Bag 1 BAG IVPB SCH ×3 (05:26→22:09)
--- NOTE | 2019-10-13 06:21 | PDOC.FM ---
- Subjective Subjective: Patient doing well this morning. Discussed plans for PICC line for prolonged IV abx. Patient agreeable with plan of care. - Objective Vital Signs & Weight: Vital Signs (12 hours) Temp Pulse Resp BP BP Pulse Ox 10/13/19 03:23 98.1 F 90 20 127/54 L 93 L 10/12/19 19:31 98.7 F 92 15 114/53 L 94 L Weight Weight 99.337 kg I&O: 10/11/19 10/12/19 10/13/19 06:59 06:59 06:59 Intake Total 1480 1360 Output Total 1000 2200 Balance 480 -840 Result Diagrams: 10/12/19 03:56 10/12/19 03:56 Phys Exam - Physical Examination Constitutional: NAD HEENT: moist MMs, sclera anicteric Neck: supple, full ROM Respiratory: no wheezing, clear to auscultation bilateral Cardiovascular: RRR, no significant murmur Gastrointestinal: soft, non-tender non-pitting edema BLE decreased movement RUE and RLE, chronic Psychiatric: normal affect, A&O x 3 Skin: no rash, normal turgor Dx/Plan (1) Sepsis Code(s): A41.9 - SEPSIS, UNSPECIFIED ORGANISM Status: Acute (2) COPD (chronic obstructive pulmonary disease) Status: Acute (3) Parkinsons Code(s): G20 - PARKINSON'S DISEASE Status: Acute (4) UTI (urinary tract infection) Status: Acute - Plan Plan: Patient is a 74F with PMHx of parkinson's disease, COPD, GERD, and elevated BP without dx of HTN that is admitted for: #Sepsis 2/2 MDR E.coli pyelonephritis -Pt has fever and CVA tenderness. Cx from recent hospitlization showed MDR E. coli on 09/20/19. Pt seems to have never fully resolved UTI from then. -Pt has fever, tachycardia and tachypnea upon presentation. \ -Given 2L NS bolus in ER. + one more liter LR for 30mg/kg sepsis bolus. - LR IVF @ 100 ml/hr -CT abdomen/pelvis ordered- no evidence of pyelo -WBC 3.8 -Procal neg -Blood and urine cx ordered, neg to date -Meropenem IV abx to cover for above based on sensitivities -Dr Leos consulted, appreciate recs -PICC line to be placed for extended IV abx outpatient -Morphine IV and lidocaine TD for back pain #Parkinsons -continue home meds #COPD -Duonebs prn for SOB -continue home inhalers #GERD -protonix #Elevated BP w/o dx of HTN -continue to monitor pressures. Likely related to pain. Consider starting meds if continues to stay elevated DVT ppx: Lovenox Diet: Regular Dispo: Tx with meropenem abx for MDR E. coli. Dr. Leos consulted, rec PICC line for continued IV abx. Trend labs. Continue to tx pain as needed. Await blood and urine cx. Addendum - Attending - Attending Attestation Date/Time: 10/13/19 1106 I personally evaluated the patient and discussed the management with Dr. Roberson. I agree with the History, Examination, Assessment and Plan documented above with any addition or exceptions noted below. PICC tomorrow. Needs abx until 10/25. CM to arrange tomorrow. likely d/c after that.
[2019-10-13] MEDS: Morphine 4 MG/ML VIAL SLOW IVP PRN (06:32)
[2019-10-13] MEDS: Mometasone 100 MCG/Formoterol 5 MCG 120 PUFF INHALER INH SCH ×2 (07:12→18:10)
[2019-10-13] MEDS: Carbidopa/Levodopa 10-100 mg Tablet PO SCH ×3 (07:55→20:59)
[2019-10-13] MEDS: Aspirin 81 mg Enteric Coated Tablet PO SCH (07:55)
[2019-10-13] MEDS: Amantadine HCl 100 mg Capsule PO SCH ×2 (07:55→20:59)
[2019-10-13] MEDS: Acetaminophen 325 MG TAB PO PRN (14:55)
[2019-10-13] MEDS: Escitalopram Oxalate 20 mg Tablet PO SCH (20:57)
[2019-10-13] MEDS: Enoxaparin Sodium 40 MG/0.4 ML SYRINGE SC SCH (20:58)
[2019-10-14] MEDS: Morphine 4 MG/ML VIAL SLOW IVP PRN ×3 (05:01→21:26)
[2019-10-14] MEDS: MEROPENEM 1 GM/50 ML 1 GM in Premix Bag 1 BAG IVPB SCH ×3 (05:02→21:25)
[2019-10-14] MEDS ORDERED: Meropenem 1 GM in Sodium Chloride 0.9% 100 ML IVPB SCH (06:00)
[2019-10-14] MEDS: Mometasone 100 MCG/Formoterol 5 MCG 120 PUFF INHALER INH SCH ×2 (07:07→18:46)
--- NOTE | 2019-10-14 08:08 | PDOC.FM ---
- Subjective Subjective: Patient doing well this morning, sitting up and eating breakfast. Discussed the need for PICC line placement and longer term antibiotics, patient's questions answered and she is in agreement with plan. States her back pain is much improved this morning, still having some on/off right shoulder pain which she states she has dealt with for years. - Objective MAR Reviewed: Yes Vital Signs & Weight: Vital Signs (12 hours) Temp Pulse Resp BP BP Pulse Ox 10/14/19 03:33 98.9 F 83 20 125/85 96 10/13/19 23:40 88 129/60 10/13/19 20:54 98.4 F 94 16 150/64 H 96 Weight Weight 99.337 kg I&O: 10/13/19 10/14/19 10/15/19 06:59 06:59 06:59 Intake Total 1360 770 Output Total 2200 700 Balance -840 70 Result Diagrams: 10/12/19 03:56 10/12/19 03:56 Phys Exam - Physical Examination Constitutional: NAD HEENT: moist MMs, sclera anicteric Neck: no JVD, supple, full ROM Respiratory: no wheezing, clear to auscultation bilateral Cardiovascular: RRR grade ii systolic murmur over aortic valve Gastrointestinal: soft, positive bowel sounds Musculoskeletal: no edema, pulses present Neurological: normal sensation, moves all 4 limbs Psychiatric: normal affect, A&O x 3 Skin: no rash, normal turgor Dx/Plan (1) Pyelonephritis due to Escherichia coli Code(s): N12 - TUBULO-INTERSTITIAL NEPHRITIS, NOT SPCF ACUTE OR CHRONIC; B96.20 - UNSP ESCHERICHIA COLI THE CAUSE OF DISEASES CLASSD ELSWHR Status: Acute (2) Sepsis Code(s): A41.9 - SEPSIS, UNSPECIFIED ORGANISM Status: Acute Qualifiers: Sepsis type: Escherichia coli Sepsis acute organ dysfunction status: without acute organ dysfunction Qualified Code(s): A41.51 - Sepsis due to Escherichia coli [E. coli] (3) COPD (chronic obstructive pulmonary disease) Status: Acute Qualifiers: COPD type: unspecified COPD Qualified Code(s): J44.9 - Chronic obstructive pulmonary disease, unspecified (4) Parkinsons Code(s): G20 - PARKINSON'S DISEASE Status: Acute (5) UTI (urinary tract infection) Status: Acute Qualifiers: Urinary tract infection type: acute pyelonephritis Qualified Code(s): N10 - Acute pyelonephritis - Plan Plan: Patient is a 74F with PMHx of parkinson's disease, COPD, GERD, and elevated BP without dx of HTN that is admitted for: #Sepsis 2/2 MDR E.coli pyelonephritis -Pt has fever and CVA tenderness. Cx from recent hospitlization showed MDR E. coli on 09/20/19. Pt seems to have never fully resolved UTI from then. -Pt has fever, tachycardia and tachypnea upon presentation. -Given 2L NS bolus in ER. + one more liter LR for 30mg/kg sepsis bolus. - LR IVF @ 100 ml/hr -CT abdomen/pelvis ordered- no evidence of pyelo -WBC 3.8 -Procal neg -Blood and urine cx ordered, neg to date at 48 hours -Meropenem IV abx to cover for above based on sensitivities -Dr Leos consulted, appreciate recs -PICC line to be placed on 10/13 for extended IV abx outpatient -Morphine IV and lidocaine TD for back pain #Parkinsons -continue home meds #COPD -Duonebs prn for SOB -continue home inhalers #GERD -protonix #Elevated BP w/o dx of HTN -continue to monitor pressures. Likely related to pain. Consider starting meds if continues to stay elevated Social: Resident of [facility] DVT ppx: Lovenox Diet: Regular Code status: FULL Dispo: Stable, admitted to inpatient on telemetry unit. Tx with meropenem abx for MDR E. coli. Dr. Leos consulted, appreciate recs. Due to have PICC line placed later today. Anticipate discharge back to [facility] in next 24-48 hours. Addendum - Attending - Attending Attestation Date/Time: 10/14/19 4171 I personally evaluated the patient and discussed the management with Dr. Celeste. I agree with the History, Examination, Assessment and Plan documented above with any addition or exceptions noted below. Patient doing well. Awaiting PICC line placement and needs placement for oysterman abx at her assisted living facility.
[2019-10-14] MEDS: Carbidopa/Levodopa 10-100 mg Tablet PO SCH ×3 (08:19→21:14)
[2019-10-14] MEDS: Amantadine HCl 100 mg Capsule PO SCH ×2 (08:19→21:27)
[2019-10-14] MEDS: Aspirin 81 mg Enteric Coated Tablet PO SCH (08:19)
--- NOTE | 2019-10-14 14:14 | SPC ---
PICC PLACEMENT ULTRASOUND-GUIDED VENOUS ACCESS: (Peripherally inserted central catheter) DATE: 10/14/2019 HISTORY: 74-year-old female requiring long-term IV antibiotics for urinary tract infection TECHNIQUE: Catheter caliber: 5 Guinean Catheter trim length:46 cm Catheter lumen number:single Catheter tip location:right atrium Vein accessed:left basilic Total fluoroscopy time: 0.4 min. Dose area product: 1227 mGy*cm^2 Signed, informed consent was obtained. A tourniquet was applied at the proximal aspect of the arm. Th e arm was prepped and draped in the usual sterile fashion. A 25-gauge needle was used to applied buffered lidocaine superficially. The vein was punctured with a 21-gauge micropuncture needle under u ltrasound guidance. A 0.018 inch guidewire was advanced through the micropuncture needle and into the vein. Under fluoroscopic guidance, the guidewire was advanced to the superior vena cava. The PICC was flushed and trimmed to the appropriate length. The micropuncture needle was exchanged over the guidewire for a 5 Guinean peel-away dilator sheath. The dilator was exchanged over the guidewire for t he PICC, which was then further advanced under fluoroscopy. The sheath and guidewire were removed. The PICC was flushed again and secured in place at the arm after adjustment of tip position. The jesus alberto ent tolerated the procedure well. There was no complication. IMPRESSION: Successful placement of PICC (peripherally inserted central catheter).
[2019-10-14] MEDS ORDERED: Polyethylene Glycol 3350 17 GM Packet PO PRN (19:27)
[2019-10-14] MEDS ORDERED: Polyethylene Glycol 3350 17 GM Packet PO SCH (19:30)
[2019-10-14] MEDS: Escitalopram Oxalate 20 mg Tablet PO SCH (21:14)
[2019-10-14] MEDS: Enoxaparin Sodium 40 MG/0.4 ML SYRINGE SC SCH (21:24)
[2019-10-15] MEDS: MEROPENEM 1 GM/50 ML 1 GM in Premix Bag 1 BAG IVPB SCH ×3 (05:31→21:10)
[2019-10-15] MEDS: Mometasone 100 MCG/Formoterol 5 MCG 120 PUFF INHALER INH SCH ×2 (07:02→18:56)
[2019-10-15 07:30] LABS: #Eosinphils 0.1 thou/uL (0.0-0.7); #Lymphocytes 1.2 thou/uL (1.20-3.40); #Monocytes 0.3 thou/uL (0.11-0.59); #Neutrophils 1.3 thou/uL (1.40-6.50); %Basophils 0.1 % (0.0-1.0); %Eosinophils 2.7 % (0.0-10.0); %Lymphocytes 40.5 % (21.0-51.0); %Monocytes 11.5 % (0.0-10.0); %Neutrophils 45.1 % (42.0-75.0); Hemoglobin 11.4 g/dL (12.0-16.0); Mean Corpuscular Hemoglobin 32.1 pg (27.0-31.0); Mean Platelet Volume 9.1 fL (7.4-10.4); Platelet Count 143 thou/uL (130-400); RBC Distribution Width 14.6 % (11.5-14.5); Red Blood Cell (RBC) Count 3.56 mill/uL (4.20-5.40); White Blood Cell (WBC) Count 2.9 thou/uL (4.8-10.8)
[2019-10-15 07:49] LABS: ALT (SGPT) 38 U/L (8-55); AST (SGOT) 21 U/L (5-34); Albumin 3.5 g/dL (3.4-4.8); Alkaline Phosphatase 126 U/L (40-110); Anion Gap 10 mmol/L (10-20); BUN (Urea Nitrogen) 9 mg/dL (9.8-20.1); Bilirubin, Total 0.5 mg/dL (0.2-1.2); Calc. Creatinine Clearance 128 mL/min (70-130); Calcium 8.8 mg/dL (7.8-10.44); Carbon Dioxide 29 mmol/L (23-31); Chloride 104 mmol/L (98-107); Estimated GFR-MDRD Greater than 90; Globulin 2.1 g/dL (2.4-3.5); Glucose 92 mg/dL (83-110); Potassium 4.2 mmol/L (3.5-5.1); Protein, Total 5.6 g/dL (6.0-8.3); Sodium 139 mmol/L (136-145)
--- NOTE | 2019-10-15 09:01 | PDOC.FM ---
- Subjective Subjective: Patient doing well this morning. No complaints. Had PICC line placed yesterday. Awaiting approval to transfer back to [facility]. - Objective MAR Reviewed: Yes Vital Signs & Weight: Vital Signs (12 hours) Temp Pulse Resp BP Pulse Ox 10/15/19 03:09 98.9 F 84 14 119/58 L 92 L 10/14/19 21:20 98.3 F 88 16 118/54 L 98 Weight Weight 96.933 kg I&O: 10/14/19 10/15/19 10/16/19 06:59 06:59 06:59 Intake Total 770 1600 Output Total 700 1600 Balance 70 0 Result Diagrams: 10/15/19 07:20 10/15/19 07:20 Phys Exam - Physical Examination Constitutional: NAD HEENT: moist MMs, sclera anicteric Neck: no JVD, supple, full ROM Respiratory: no wheezing, clear to auscultation bilateral Cardiovascular: RRR, no significant murmur Gastrointestinal: soft, no distention, positive bowel sounds Musculoskeletal: no edema, pulses present Neurological: non-focal, normal sensation, moves all 4 limbs Psychiatric: normal affect, A&O x 3 Skin: no rash, normal turgor Dx/Plan (1) Pyelonephritis due to Escherichia coli Code(s): N12 - TUBULO-INTERSTITIAL NEPHRITIS, NOT SPCF ACUTE OR CHRONIC; B96.20 - UNSP ESCHERICHIA COLI THE CAUSE OF DISEASES CLASSD ELSWHR Status: Acute (2) Sepsis Code(s): A41.9 - SEPSIS, UNSPECIFIED ORGANISM Status: Acute Qualifiers: Sepsis type: Escherichia coli Sepsis acute organ dysfunction status: without acute organ dysfunction Qualified Code(s): A41.51 - Sepsis due to Escherichia coli [E. coli] (3) COPD (chronic obstructive pulmonary disease) Status: Acute Qualifiers: COPD type: unspecified COPD Qualified Code(s): J44.9 - Chronic obstructive pulmonary disease, unspecified (4) Parkinsons Code(s): G20 - PARKINSON'S DISEASE Status: Acute (5) UTI (urinary tract infection) Status: Acute Qualifiers: Urinary tract infection type: acute pyelonephritis Qualified Code(s): N10 - Acute pyelonephritis - Plan Plan: Patient is a 74F with PMHx of parkinson's disease, COPD, GERD, and elevated BP without dx of HTN that is admitted for: #Sepsis 2/2 MDR E.coli pyelonephritis -Pt has fever and CVA tenderness. Cx from recent hospitalization showed MDR E. coli on 09/20/19. Pt seems to have never fully resolved UTI from then. -Pt has fever, tachycardia and tachypnea upon presentation. -Given 2L NS bolus in ER. + one more liter LR for 30mg/kg sepsis bolus. - LR IVF @ 100 ml/hr -CT abdomen/pelvis ordered- no evidence of pyelo -WBC 3.8 -Procal neg -Blood and urine cx ordered, neg to date at 48 hours -Meropenem IV abx to cover for above based on sensitivities -Dr Leos consulted, appreciate recs -PICC line placed on 10/13 for extended IV abx outpatient--will need to continue on IV Invanz 1g/day until October 25 -perform weekly CBC, CRP, CMP -repeat UA and culture at end of treatment -Morphine IV and lidocaine TD for back pain #Parkinsons -continue home meds #COPD -Duonebs prn for SOB -continue home inhalers #GERD -protonix #Elevated BP w/o dx of HTN -continue to monitor pressures. Likely related to pain. Consider starting meds if continues to stay elevated Social: Resident of [facility]-stable for discharge back to facility, awaiting acceptance DVT ppx: Lovenox Diet: Regular Code status: FULL Dispo: Stable, admitted to inpatient on telemetry unit. Tx with meropenem abx for MDR E. coli. Dr. Leos consulted, appreciate recs. Anticipate discharge back to [facility] in next 24-48 hours. Addendum - Attending - Attending Attestation Date/Time: 10/15/19 9622 I personally evaluated the patient and discussed the management with Dr. Celeste. I agree with the History, Examination, Assessment and Plan documented above with any addition or exceptions noted below. Patient stable. [facility]x [facility]. Working on placement at SNF since her AL facility will not take her with PICC line and need for abx.
[2019-10-15] MEDS: Carbidopa/Levodopa 10-100 mg Tablet PO SCH ×3 (09:48→21:06)
[2019-10-15] MEDS: Aspirin 81 mg Enteric Coated Tablet PO SCH (09:48)
[2019-10-15] MEDS: Amantadine HCl 100 mg Capsule PO SCH ×2 (09:48→21:06)
[2019-10-15] MEDS: Escitalopram Oxalate 20 mg Tablet PO SCH (21:06)
[2019-10-15] MEDS: Morphine 4 MG/ML VIAL SLOW IVP PRN (21:10)
[2019-10-15] MEDS: Enoxaparin Sodium 40 MG/0.4 ML SYRINGE SC SCH (21:10)
[2019-10-16] MEDS: MEROPENEM 1 GM/50 ML 1 GM in Premix Bag 1 BAG IVPB SCH ×2 (05:35→13:03)
[2019-10-16] MEDS: Mometasone 100 MCG/Formoterol 5 MCG 120 PUFF INHALER INH SCH (07:19)
[2019-10-16] MEDS: Amantadine HCl 100 mg Capsule PO SCH (08:14)
[2019-10-16] MEDS: Aspirin 81 mg Enteric Coated Tablet PO SCH (08:15)
[2019-10-16] MEDS: Carbidopa/Levodopa 10-100 mg Tablet PO SCH (08:15)
--- NOTE | 2019-10-16 08:56 | PDOC.FM ---
- Subjective Subjective: Patient sitting up eating breakfast this morning. States she was able to meet with Apartment Leasing Manager yesterday, has decided to go to [facility] for continued antibiotic therapy then ultimately desires to return to [facility] after that is completed. Denies any complaints this morning. - Objective MAR Reviewed: Yes Vital Signs & Weight: Vital Signs (12 hours) Temp Pulse Resp BP Pulse Ox 10/16/19 08:12 99 F 87 20 137/58 L 92 L 10/16/19 03:25 99.3 F 85 18 116/58 L 93 L Weight Weight 93.894 kg I&O: 10/15/19 10/16/19 10/17/19 06:59 06:59 06:59 Intake Total 1600 1474 Output Total 1600 2550 Balance 0 -1076 Result Diagrams: 10/15/19 07:20 10/15/19 07:20 Phys Exam - Physical Examination Constitutional: NAD HEENT: moist MMs, sclera anicteric Neck: supple, full ROM Respiratory: no wheezing, clear to auscultation bilateral Cardiovascular: RRR, no significant murmur Gastrointestinal: soft, positive bowel sounds Musculoskeletal: no edema, pulses present Neurological: normal sensation, moves all 4 limbs slight resting tremor in hands Psychiatric: normal affect, A&O x 3 Skin: no rash, normal turgor Dx/Plan (1) Pyelonephritis due to Escherichia coli Code(s): N12 - TUBULO-INTERSTITIAL NEPHRITIS, NOT SPCF ACUTE OR CHRONIC; B96.20 - UNSP ESCHERICHIA COLI THE CAUSE OF DISEASES CLASSD ELSWHR Status: Acute (2) Sepsis Code(s): A41.9 - SEPSIS, UNSPECIFIED ORGANISM Status: Acute Qualifiers: Sepsis type: Escherichia coli Sepsis acute organ dysfunction status: without acute organ dysfunction Qualified Code(s): A41.51 - Sepsis due to Escherichia coli [E. coli] (3) COPD (chronic obstructive pulmonary disease) Status: Acute Qualifiers: COPD type: unspecified COPD Qualified Code(s): J44.9 - Chronic obstructive pulmonary disease, unspecified (4) Parkinsons Code(s): G20 - PARKINSON'S DISEASE Status: Acute (5) UTI (urinary tract infection) Status: Acute Qualifiers: Urinary tract infection type: acute pyelonephritis Qualified Code(s): N10 - Acute pyelonephritis - Plan Plan: Patient is a 74F with PMHx of parkinson's disease, COPD, GERD, and elevated BP without dx of HTN that is admitted for: #Sepsis 2/2 MDR E.coli pyelonephritis -Pt has fever and CVA tenderness. Cx from recent hospitalization showed MDR E. coli on 09/20/19. Pt seems to have never fully resolved UTI from then. -Pt has fever, tachycardia and tachypnea upon presentation. -Given 2L NS bolus in ER. + one more liter LR for 30mg/kg sepsis bolus. - LR IVF @ 100 ml/hr -CT abdomen/pelvis ordered- no evidence of pyelo -WBC 3.8 -Procal neg -Blood and urine cx ordered, neg to date at 48 hours -Meropenem IV abx to cover for above based on sensitivities -Dr Leos consulted, appreciate recs -PICC line placed on 10/13 for extended IV abx outpatient--will need to continue on IV Invanz 1g/day until October 25 -perform weekly CBC, CRP, CMP -repeat UA and culture at end of treatment -Morphine IV and lidocaine TD for back pain #Parkinsons -continue home meds #COPD -Duonebs prn for SOB -continue home inhalers #GERD -protonix #Elevated BP w/o dx of HTN -continue to monitor pressures. Likely related to pain. Consider starting meds if continues to stay elevated Social: Resident of [facility]-stable for discharge to SNF [facility] for continued ABx, awaiting acceptance DVT ppx: Lovenox Diet: Regular Code status: FULL Dispo: Stable, admitted to inpatient on telemetry unit. Tx with meropenem abx for MDR E. coli. Dr. Leos consulted, appreciate recs. Anticipate discharge to SNF when accepted. Addendum - Attending - Attending Attestation Date/Time: 10/16/19 1204 I personally evaluated the patient and discussed the management with Dr. Celeste. I agree with the History, Examination, Assessment and Plan documented above with any addition or exceptions noted below. Patient overall stable. She has been accepted for SNF to complete her abx therapy. She is stable for discharge today.
[2019-10-16 11:29] VITALS: BP 121/89; TEMP 98.5
[2019-10-16] MEDS: Acetaminophen 325 MG TAB PO PRN (13:03)
--- NOTE | 2019-10-16 20:36 | DIS ---
DATE OF ADMISSION: 10/11/2019 DATE OF DISCHARGE: 10/16/2019 ADMITTING ATTENDING: Orlin Vasquez MD DISCHARGE ATTENDING: Jerman Mena MD CONSULTATION: Infectious Disease, Dr. Leos. PROCEDURES: 1. Abdomen and pelvis CT on October 11, 2019: No acute abnormality. Scattered colonic diverticula without evidence of acute diverticulitis. 2. Chest x-ray on October 11, 2019: No focal consolidation or alveolar edema. Stable increased linear interstitial density with pulmonary hyperinflation. 3. PICC line placed on October 14, 2019. PRIMARY DIAGNOSIS: Sepsis secondary to multidrug resistant Escherichia coli. SECONDARY DIAGNOSES: 1. Parkinson's disease. 2. Chronic obstructive pulmonary disease. 3. Gastroesophageal reflux disease. 4. Elevated blood pressure without diagnosis of hypertension. DISCHARGE MEDICATIONS: 1. Aspirin 81 mg p.o. daily. 2. Pantoprazole 40 mg p.o. daily. 3. Celecoxib 200 mg p.o. daily. 4. Carbidopa and levodopa 10-100 mg tablet 0.5 tablets p.o. t.i.d. 5. Lexapro 10 mg p.o. at bedtime. 6. Amantadine HCL 100 mg p.o. b.i.d. 7. Combivent inhaler one puff inhaled q.i.d. 8. Carbidopa-levodopa 25-100 tablets one tablet p.o. t.i.d. 9. Acetaminophen 650 mg p.o. q.4 hours p.r.n. 10. Dulera 100 mcg/5 mcg inhaler 2 puffs inhaled b.i.d. 11. MiraLAX 17 g p.o. daily p.r.n. 12. Ertapenem (Invanz) 1 g IV q.24 hours continued through October 26, 2019. DISCONTINUED MEDICATIONS: Macrobid 100 mg p.o. b.i.d. HISTORY OF PRESENT ILLNESS/HOSPITAL COURSE: The patient is a 74-year-old female, who presented to the [facility] Emergency Department on October 12, 2019, with concerns for fever, UTI, and back pain from [facility] in [place], [place]. The patient was recently discharged from the hospital for sepsis secondary to UTI on September 21. Urine cultures then showed a multidrug resistant E coli. It was sensitive to Bactrim, which she was sent home with. The patient reports taking antibiotic and getting better, but then 3 days later, symptoms returned. Upon followup, the patient was prescribed Macrobid, which again the culture was showed sensitivity to. The patient continued to have fevers and get worse over the past few days, and thus was brought to the ER by [facility]. The patient reported back pain, which was sharp in characterization, fever, burning with urination. The patient also reported a chronic cough. CT abdomen and pelvis was completed in the ER with findings that were unremarkable. The patient was given a 2 L normal saline bolus and continued on lactated Ringer's maintenance fluids. She was also started on meropenem IV antibiotics, which were continued upon arrival to the floor. The patient was admitted to inpatient on the telemetry unit for sepsis secondary to multidrug resistant E coli UTI. Meropenem antibiotics were continued. Ultimately blood and urine cultures resulted as negative. However, given the patient's presentation and recent culture that was drawn at the followup visit, there were resistance to Bactrim and Macrobid. At that point, Dr. Leos with Infectious Disease was consulted. He recommended that the patient be discharged on IV Invanz 1 g q.24 hours with an end date of October 26, 2019. He recommended weekly monitoring with CBC, CRP, and CMP. Additionally recommended a repeat urinalysis at the end of treatment. At this time, a PICC line was arranged for placement on October 14, 2019. The patient was unable to receive IV antibiotics at her original setting of [facility]. Case Management was consulted for [facility] facility placement. Ultimately, the patient decided to choose [facility]. She was deemed stable for discharge on October 16, 2019 to that facility. DISPOSITION: Stable. DISCHARGE INSTRUCTIONS: 1. Location: [facility]. 2. Diet: Regular. 3. Activity: As tolerated. 4. Follow up with PCP, Dr. Varma in 3 to 5 days. 5. Follow up with Dr. Ragsdale, [facility] facility physician tomorrow. Job ID: [id number]
== END 2019-10-16 13:50 | DRG 872 ==
LOC: ERS 22:02 → 2NO 23:38
PROVIDERS: ADMIT Family Medicine; ATTEND Family Medicine
PROC: 02HV33Z Insertion of Infusion Device into Superior Vena Cava, Percutaneous Approach (ICD-10-PCS; principal; 2019-10-14)
PROC: B548ZZA Ultrasonography of Superior Vena Cava, Guidance (ICD-10-PCS; 2019-10-14)
DX: A41.51 Sepsis due to Escherichia coli [E. coli] (principal); N10 Acute pyelonephritis; Z16.12 Extended spectrum beta lactamase (ESBL) resistance; G20 Parkinson's disease; J44.9 Chronic obstructive pulmonary disease, unspecified; K21.9 Gastro-esophageal reflux disease without esophagitis; R03.0 Elevated blood-pressure reading, without diagnosis of hypertension; M81.0 Age-related osteoporosis without current pathological fracture; Z90.49 Acquired absence of other specified parts of digestive tract; Z98.51 Tubal ligation status; Z87.891 Personal history of nicotine dependence; Z79.82 Long term (current) use of aspirin; Z79.899 Other long term (current) drug therapy; Z99.3 Dependence on wheelchair
CPT/HCPCS: 36415; 36569; 51701; 71045; 74177; 80053; 81003; 81015; 83605; 84145; 85025; 87040; 87086; 93005; 96365; 96367; 96375; C1751; J0696; J1644; J1650; J2185; J2270; J3370; Q9967

== ENCOUNTER 2019-12-08 18:48 | Inpatient (IN) | payer MEDICARE, OTHER ==
[2019-12-08 19:36] LABS: Hemoglobin 12.5 g/dL (12.0-16.0); Mean Corpuscular HGB CONC 33.2 g/dL (32.0-36.0); Mean Corpuscular Hemoglobin 33.1 pg (27.0-31.0); Mean Corpuscular Volume 99.5 fL (78.0-98.0); Mean Platelet Volume 8.9 fL (7.4-10.4); Platelet Count 158 thou/uL (130-400); Red Blood Cell (RBC) Count 3.79 mill/uL (4.20-5.40); White Blood Cell (WBC) Count 9.1 thou/uL (4.8-10.8)
--- NOTE | 2019-12-08 19:41 | RAD ---
EXAM: Single view of the chest HISTORY: Fever and headache COMPARISON: 10/11/2019 FINDINGS: Single view of the chest shows a normal sized cardiomediastinal silhouette. There is a ques tionable area of airspace opacity in the right lower lobe The bones are unremarkable IMPRESSION: Possible subtle right lower lobe infiltrate
[2019-12-08] MEDS ORDERED: Acetaminophen 500 MG TAB ONE (19:55)
[2019-12-08 19:56] LABS: ALT (SGPT) 40 U/L (8-55); AST (SGOT) 265 U/L (5-34); Albumin 4.3 g/dL (3.4-4.8); Alkaline Phosphatase 120 U/L (40-110); Anion Gap 10 mmol/L (10-20); BUN (Urea Nitrogen) 22 mg/dL (9.8-20.1); Bilirubin, Total 0.9 mg/dL (0.2-1.2); Calc. Creatinine Clearance 0 mL/min (70-130); Calcium 9.1 mg/dL (7.8-10.44); Carbon Dioxide 29 mmol/L (23-31); Chloride 105 mmol/L (98-107); Estimated GFR-MDRD 86; Glucose 102 mg/dL (83-110); Potassium 3.8 mmol/L (3.5-5.1); Protein, Total 6.3 g/dL (6.0-8.3); Sodium 140 mmol/L (136-145)
[2019-12-08 19:57] LABS: Band 40 % (5-11); Lymphocytes 1 % (21-51); MDiff Complete? YES; Macrocytosis SLIGHT = 6-15 cells (100X) (0-5/hpf); Monocytes 5 % (0-10); Neutrophil 54 % (42-75); Platelet Morphology Comment Appears Adequate; Polychromasia SLIGHT = 2-3 cells (100X) (0-2/hpf)
[2019-12-08] MEDS ORDERED: Cefepime 2 GM VIAL ONE (20:19)
[2019-12-08 20:35] LABS: Bacteria/HPF None Seen HPF (None Seen); Bilirubin Negative (Negative); Blood, Urine 2+ (Negative); Clarity Turbid (Clear); Glucose, Urine (Dipstick) Normal (Negative); Ketone, Urine Trace mg/dL (Negative); Leukocyte 500 Leu/uL (Negative); Nitrite Negative (Negative); Protein, Urine (Dipstick) 30 mg/dL (Neg-Trace); RBC/HPF 21-50 HPF (0-3); Specific Gravity, Urine 1.023 (1.002-1.036); Squamous Epithelial None Seen HPF (0-3); Urobilinogen Normal mg/dL (Less than 2); WBC/HPF Greater than 50 HPF (0-3)
[2019-12-08] MEDS ORDERED: MEROPENEM 1 GM/50 ML 1 GM in Premix Bag 1 BAG IVPB SCH (20:45)
[2019-12-08] MEDS ORDERED: Ondansetron PF 4 MG/2 ML Vial IVP PRN (21:56)
[2019-12-08] MEDS ORDERED: Ondansetron ODT 4 MG TAB SL PRN (21:56)
[2019-12-08] MEDS ORDERED: Ketorolac Tromethamine 30 MG/ML VIAL IVP SCH (22:15)
--- NOTE | 2019-12-08 22:34 | PDOC.EVN ---
Event Note - Event Note Event Note: Discussed with residents agree w/ documentation. 74 yo WF PMH COPD and parkinsons. Presented with abdominal pain. Recent hx of ESBL E-coli pyelo treated for 14 days with meropenum. States she never fully cleared bacteria per PCP. UCx on file only show one positive culture in September 2019. Exam remarkable for diffuse abdominal tenderness and tachycardia. Labs remarkable for elevated WBC and UA c/w UTI. Admit for sepsis 2/2 UTI. Continue meropenum 2/2 hx ESBL ecoli. cultures pending. ID consult pending culture results. Continue IV fluids. Will try 1 time dose of toradol for pain. Inpatient, tele, >2 midnights.
[2019-12-08] MEDS ORDERED: Ketorolac Tromethamine 30 MG/ML VIAL ONE (22:47)
[2019-12-08] MEDS: Sodium Chloride 0.9% 1,000 ML IV SCH (23:18)
--- NOTE | 2019-12-08 23:31 | PDOC.FPRHP ---
- History of Present Illness Chief Complaint: UTI History of Present Illness: Patient is a 74 year old F, PMHx COPD/asthma and Parksinons who presents to the ED due to complaints of lower back pain, fever/chills and generalized abdominal pain that she associated with a UTI that started earlier this afternoon. She states that she has a history of UTIs that are resistant to antibiotics and she has been on/off antibiotics for the past 6 weeks. She notes she was at the hospital 1 month ago for a UTI that required her being sent home with a PICC line to receive IV Ivanz via a PICC line at the [facility] for ~2 weeks following her discharge. She reports she followed up with Dr. Varma as instructed and her urine was still not clear so he referred her to Urology but she could not be seen by then until later this month. She denies dysuria or incontinence, but notes that she has chronic urinary frequency. Patient endorses chronic shortness of breath, but denies chest pain, cough, congestion, N/V/D. ED Course: In the ED she received cefepime, meropenem, 2L NS bolus, 1g tylenol - Allergies/Adverse Reactions Allergies Allergy/AdvReac Type Severity Reaction Status Date / Time No Known Drug Allergies Allergy Verified 10/12/19 01:54 - Home Medications Medication Instructions Recorded Confirmed Type Aspirin [Ecotrin Low Strength] 81 mg PO DAILY 09/20/19 10/12/19 History Carbidopa/Levodopa [Carbidopa-Levo 0.5 tab PO TID 09/20/19 10/12/19 History 10-100 mg Odt] Celecoxib [Celebrex] 200 mg PO DAILY 09/20/19 10/12/19 History Pantoprazole Sodium 40 mg PO DAILY 09/20/19 10/12/19 History Amantadine HCl [Amantadine] 100 mg PO BID 09/21/19 10/12/19 History Escitalopram Oxalate [Lexapro] 10 mg PO HS 09/21/19 10/12/19 History Carbidopa/Levodopa 1 tab PO TID 10/12/19 10/12/19 History [Carbidopa-Levodopa 25-100 Tab] Ipratropium/Albuterol Sulfate 1 puff INH QID 10/12/19 10/12/19 History [Combivent Respimat] Acetaminophen [Tylenol Regular 650 mg PO Q4H PRN tab 10/15/19 Rx Strength] Mometasone/Formoterol 100/5 2 puff INH BID-RT inh 10/15/19 Rx [Dulera 100 Mcg/5 Mcg Inhaler] Polyethylene Glycol 3350 [Miralax] 17 gm PO DAILYPRN PRN pk 10/15/19 Rx Ertapenem [Invanz] 1 gm IVPB Q24HR 10 Days #10 vial 10/16/19 Rx - History PMHx: COPD/asthma, Parkinsons, chronic R knee pain, Freq UTIs PSHx: cholecystectomy FHx: Mother [place], lung disease Social: no smoking, alcohol or drugs - Review of Systems General: reports: fever/chills. denies: weight/appetite/sleep changes Eyes: denies: eye pain, vision changes ENT: denies: nasal congestion, rhinorrhea Respiratory: reports: shortness of breath (chronic). denies: cough, congestion Cardiovascular: denies: chest pain, edema Gastrointestinal: reports: abdominal pain (generalized). denies: nausea, vomiting, diarrhea Genitourinary: reports: polyuria (chronic). denies: incontinence, dysuria Skin: denies: rashes, lesions Musculoskeletal: reports: pain (low back pain) Neurological: denies: numbness, syncope Psychological: denies: anxiety, depression - Vital signs BP: 125/101, Pulse: 120, Resp: 18, Temp: 99.5 F, O2 sat: 97 on RA, Wt: 99kg - Physical Exam Constitutional: NAD, awake, alert and oriented HEENT: normocephalic and atraumatic, PERRLA, EOMI Neck: supple, FROM Heart: RRR, no edema Lungs: no respiratory distress, other (expiratory wheezing) Abdomen: soft, non-tender, bowel sounds present Musculoskeletal: normal structure, normal tone, other (No CVA tenderness) Neurological: no focal deficit, normal sensation Skin: no rash/lesions, good turgor, other (resting tremors b/l hands) Heme/Lymphatic: no unusual bruising or bleeding, no purpura Psychiatric: normal mood and affect, good judgment and insight, intact recent and remote memory, other (A & O x4) FMR H&P: Results - Labs Result Diagrams: 12/08/19 19:23 12/08/19 19:23 Lab results: WBC 9.1 thou/uL (4.8-10.8) 12/08/19 19:23 Hgb 12.5 g/dL (12.0-16.0) 12/08/19 19:23 Hct 37.7 % (36.0-47.0) 12/08/19 19:23 MCV 99.5 fL (78.0-98.0) H 12/08/19 19:23 Plt Count 158 thou/uL (130-400) 12/08/19 19:23 Band Neuts % (Manual) 40 % (5-11) H 12/08/19 19:23 Sodium 140 mmol/L (136-145) 12/08/19 19:23 Potassium 3.8 mmol/L (3.5-5.1) 12/08/19 19:23 Chloride 105 mmol/L (98-107) 12/08/19 19:23 Carbon Dioxide 29 mmol/L (23-31) 12/08/19 19:23 BUN 22 mg/dL (9.8-20.1) H 12/08/19 19:23 Creatinine 0.67 mg/dL (0.6-1.1) 12/08/19 19:23 Glucose 102 mg/dL (83-110) 12/08/19 19:23 Lactic Acid 1.3 mmol/L (0.5-2.2) 12/08/19 19:23 Calcium 9.1 mg/dL (7.8-10.44) 12/08/19 19:23 Total Bilirubin 0.9 mg/dL (0.2-1.2) 12/08/19 19:23 AST 265 U/L (5-34) H 12/08/19 19:23 ALT 40 U/L (8-55) 12/08/19 19:23 Alkaline Phosphatase 120 U/L (40-110) H 12/08/19 19:23 Serum Total Protein 6.3 g/dL (6.0-8.3) 12/08/19 19:23 Albumin 4.3 g/dL (3.4-4.8) 12/08/19 19:23 Urine Ketones Trace mg/dL (Negative) A 12/08/19 20:05 Urine Blood 2+ (Negative) A 12/08/19 20:05 Urine Nitrite Negative (Negative) 12/08/19 20:05 Ur Leukocyte Esterase 500 Nakita/uL (Negative) A 12/08/19 20:05 Urine RBC 21-50 HPF (0-3) A 12/08/19 20:05 Urine WBC Greater than 50 HPF (0-3) A 12/08/19 20:05 Ur Squamous Epith Cells None Seen HPF (0-3) 12/08/19 20:05 Urine Bacteria None Seen HPF (None Seen) 12/08/19 20:05 - EKG Interpretation EKG: Rate 119 a flutter QRS 62 no STEMI FMR H&P: A/P - Plan Sepsis 2/2 UTI Previous Hx ESBL E-coli pyelo x 1 month ago UA +leuks, -nitrites, +WBC, +RBC, +blood Patient tachy, + Bands on CBC, WBC wnl - patient started on meropenem in ED, will continue - 1x dose Toradol for pain, tylenol PRN - UCx pending - BCx pending - will likely consult ID in the am - will consider Urology consult, d/t history and recurrence of UTIs - will continue IVF - am CBC/CMP - vitals q4hr Elevated AST AST: 265 - will recheck am CMP A Flutter on EKG Endorsed no history of Afib/Aflutter Likely 2/2 infection - will continue to monitor on tele - may need cardiology consult if persists Hx COPD Sats in the high 90s on RA, stable - will resume home meds/inhalers Hx Parkinsons - will resume home carbidopa/levodopa Dispo: admit to inpatient tele, >48 hours DVT PPx: lovenox PCP: Kojo Code Status: DNI-DNR I have discussed this case with Dr. Vasquez. FMR H&P: Upper Level - Plan Date/Time: 12/08/19 6251 I, Sarai Jackson, have evaluated this patient and agree with findings/plan as outlined by internet cafe manager resident. Pertinent changes/additions are listed here. 74YOF with a PMH notable for parkinson's, asthma/COPD, & recurrent UTIs who presented to the ED for evaluation for subjective fever/chills and back and abdominal pain that began earlier on the date of presentation. Of note, the patient has been admitted twice this year since 09/2019 for sepsis 2/2 UTI. During her most recent admission she was treated for a multidrug resistant E coli UTI and was on IV Ivanz via a PICC line at the [facility] for ~2 weeks following her discharge. She reports she followed up with Dr. Varma as instructed and her urine was still not clear so he referred her to Urology but she could not be seen by then until later this month. She reports her symptoms are similar to what she was experiencing prior to her last admission so she called her daughter to bring her to the ED for further evaluation. On arrival to the ER she was noted to be tachycardic in the 110s-120s & her EKG actually showed some atrial flutter that has resolved by the time of our exam. Labs were notable for a 40% bands with a normal total WBC but her UA was also notable for bld, WBC & LE but no bacteria or squams. Her serum procal was also elevated at ~ 2.1. On exam she was still tachy in the 110s but in NSR. Her exam was otherwise unremarkable other than a resting tremor in her arms, L>R c/w parkinson's. She was therefore determined to be septic from a UTI and was given 1g of IV meropenem & 2g IV cefepime given her h/o ESBL infection. She was given 2L of NS & 1g of tylenol as well. Plan will be to admit to inpatient telemetry for continued monitoring and IV abx pending urine & blood cultures. Will likely need to consult ID for further recs in the AM as well given her history. Would also consider getting Urology on board to go ahead and establish patient with them given her frequency of admissions 2/2 this issue. Will continue PRN tylenol & mIVFs as well. Will resume her home meds for all of her chronic conditions. Anticipated LOS > 2 midnights pending clinical course. Addendum - Attending - Attending Attestation Date/Time: 12/09/19 0609 I personally evaluated the patient and discussed the management with Dr. Saleem/ Manuel. I agree with the History, Examination, Assessment and Plan documented above with any addition or exceptions noted below. See my event note for additional details. EKG read by machine as A-flutter. I believe it was just sinus tachycardia as QRS complexes as at regular intervals and no appreciable saw-tooth pattern noted. CXR noted infection vs atelectasis.
[2019-12-09 01:56] VITALS: BMI 35.2
[2019-12-09] MEDS ORDERED: Polyethylene Glycol 3350 17 GM Packet PO PRN (01:56)
[2019-12-09] MEDS ORDERED: Acetaminophen 325 MG TAB ONE (04:53)
[2019-12-09] MEDS ORDERED: MEROPENEM 1 GM/50 ML 1 GM in Premix Bag 1 BAG IVPB SCH (05:00)
[2019-12-09] MEDS ORDERED: diphenhydrAMINE 25 MG in Sodium Chloride 0.9% 50 ML IVPB SCH (05:15)
[2019-12-09] MEDS ORDERED: Metoclopramide HCl 10 MG/2 ML VIAL IVP SCH (05:15)
[2019-12-09] MEDS ORDERED: Metoclopramide HCl 10 MG/2 ML VIAL ONE (05:23)
[2019-12-09] MEDS ORDERED: diphenhydrAMINE 50 MG/ML VIAL ONE (05:23)
--- NOTE | 2019-12-09 05:55 | PDOC.FM ---
- Subjective Subjective: The patient complains of headache and urinary frequency. She denies chills, sweating, vision changes, chest pain, SOB, abdominal pain and dysuria. - Objective MAR Reviewed: Yes Vital Signs & Weight: Weight Weight 99 kg Result Diagrams: 12/09/19 08:06 12/09/19 08:05 Phys Exam - Physical Examination Constitutional: NAD HEENT: moist MMs, sclera anicteric Neck: supple, full ROM Respiratory: wheezing present Expiratory wheezing Cardiovascular: RRR, no significant murmur Gastrointestinal: soft, positive bowel sounds Musculoskeletal: no edema, pulses present No CVA tenderness Neurological: non-focal, moves all 4 limbs Lymphatic: no nodes Psychiatric: normal affect, A&O x 3 Skin: no rash, normal turgor Dx/Plan - Plan Plan: Sepsis 2/2 UTI Previous Hx ESBL E-coli pyelo 1 month ago treated with 14 day course of meropenem. UA +leuks, -nitrites, +WBC, +RBC, +blood. CBC showed +bands. Procal 2.1. Dr. Leos, ID, was consulted. - Continue meropenem - Continue IVF - Tylenol PRN for pain - F/u urine and blood cultures - Trend procal daily - F/u Dr. Leos' recs - Daily CBC/CMP - vitals q4hr - F/u with urology outpatient (has appointment this month) Elevated AST AST: 265. Denies ETOH use. - Daily CMP A Flutter on EKG Denies history of Afib/Aflutter. Likely 2/2 infection. - On telemetry - may need cardiology consult if persists Hx COPD Sats in the high 90s on RA, stable - Continue home meds/inhalers Hx Parkinsons -Continue home carbidopa/levodopa DVT PPx: lovenox PCP: Kojo Code Status: DNI-DNR Disposition: Home pending treatment of UTI with adequate pain control Addendum - Attending - Attending Attestation Date/Time: 12/09/19 8641 I personally evaluated the patient and discussed the management with Dr. Chappell. I agree with the History, Examination, Assessment and Plan documented above with any addition or exceptions noted below. Patient here with headache and concerns for fever. She has recently completed treatment for MDR UTI. Apparently her urine culture is still growing organisms outpatient, suggesting she is colonized. She has no urinary complaints today. Her LFT and TBili have had bump to suggest choledocholithiasis. CBD is indeterminate. Consider MRCP and GI consult. PCT elevated, suspect infection brewing. She is on abx at this time.
[2019-12-09] MEDS: Sodium Chloride 0.9% 1,000 ML IV SCH (07:01)
[2019-12-09] MEDS: Mometasone 100 MCG/Formoterol 5 MCG 120 PUFF INHALER INH SCH ×2 (07:50→19:18)
[2019-12-09 08:38] LABS: #Lymphocytes 0.2 thou/uL (1.20-3.40); #Monocytes 0.6 thou/uL (0.11-0.59); %Eosinophils 0.3 % (0.0-10.0); %Lymphocytes 3.4 % (21.0-51.0); %Monocytes 9.5 % (0.0-10.0); %Neutrophils 86.9 % (42.0-75.0); Hemoglobin 11.9 g/dL (12.0-16.0); Mean Corpuscular HGB CONC 32.5 g/dL (32.0-36.0); Mean Corpuscular Hemoglobin 32.7 pg (27.0-31.0); Mean Platelet Volume 9.5 fL (7.4-10.4); Platelet Count 130 thou/uL (130-400); RBC Distribution Width 15.2 % (11.5-14.5); Red Blood Cell (RBC) Count 3.64 mill/uL (4.20-5.40); White Blood Cell (WBC) Count 5.8 thou/uL (4.8-10.8)
[2019-12-09] MEDS ORDERED: Enoxaparin Sodium 40 MG/0.4 ML SYRINGE ONE (08:53)
[2019-12-09] MEDS ORDERED: Aspirin Chewable 81 MG TAB ONE (08:53)
[2019-12-09 09:02] LABS: ALT (SGPT) 245 U/L (8-55); AST (SGOT) 404 U/L (5-34); Albumin 3.6 g/dL (3.4-4.8); Alkaline Phosphatase 184 U/L (40-110); Anion Gap 11 mmol/L (10-20); BUN (Urea Nitrogen) 18 mg/dL (9.8-20.1); Bilirubin, Total 2.5 mg/dL (0.2-1.2); Calc. Creatinine Clearance 113 mL/min (70-130); Carbon Dioxide 25 mmol/L (23-31); Chloride 109 mmol/L (98-107); Estimated GFR-MDRD 87; Glucose 118 mg/dL (83-110); Potassium 4.2 mmol/L (3.5-5.1); Protein, Total 5.6 g/dL (6.0-8.3); Sodium 141 mmol/L (136-145)
[2019-12-09] MEDS: CeleCOXIB 100 MG CAP PO SCH (10:33)
[2019-12-09] MEDS: Amantadine HCl 100 mg Capsule PO SCH ×2 (10:33→20:50)
[2019-12-09] MEDS: Enoxaparin Sodium 40 MG/0.4 ML SYRINGE SC SCH (10:33)
[2019-12-09] MEDS: Aspirin 81 mg Enteric Coated Tablet PO SCH (10:33)
[2019-12-09] MEDS: Carbidopa/Levodopa 25-100 mg Tablet PO SCH ×3 (10:33→20:50)
--- NOTE | 2019-12-09 10:56 | ULT ---
US Gallbladder RUQ: 12/09/2019 9:58 AM CLINICAL HISTORY: Worsening LFTs and bilirubin. Abdominal pain. STUDY: Limited right upper quadrant ultrasound of abdomen. COMPARISON: None. FINDINGS: Liver: Size: Normal. Echogenicity: Hyperechoic consistent with hepatic steatosis. Contour: Smooth. Mass: None. Bile ducts: No intrahepatic or extrahepatic biliary dilatation. Common bile duct measures 6 mm. Gallbladder: Removed Pancreas: Head and body appear normal; tail obscured by bowel gas. Right kidney: No pelvicalyceal dilatation. Right kidney measuring 10.0 cm in length. IMPRESSION: Fatty liver
[2019-12-09] MEDS ORDERED: Ketorolac Tromethamine 30 MG/ML VIAL IVP SCH (11:30)
[2019-12-09] MEDS ORDERED: Ketorolac Tromethamine 30 MG/ML VIAL ONE (11:40)
[2019-12-09 11:56] LABS: SARS-CoV-2 MS2 Positive; SARS-CoV-2 N Gene Negative; SARS-CoV-2 S Gene Negative; SARS-CoV-2 by NAA Not Detected (NotDetected); SARS-CoV-2 orf1ab Negative
[2019-12-09 15:35] LABS: Lactic Acid 0.7 mmol/L (0.5-2.2)
[2019-12-09 15:52] LABS: ALT (SGPT) 61 U/L (8-55); AST (SGOT) 291 U/L (5-34); Albumin 3.3 g/dL (3.4-4.8); Alkaline Phosphatase 172 U/L (40-110); Anion Gap 10 mmol/L (10-20); BUN (Urea Nitrogen) 17 mg/dL (9.8-20.1); Bilirubin, Total 2.4 mg/dL (0.2-1.2); Calc. Creatinine Clearance 125 mL/min (70-130); Calcium 7.8 mg/dL (7.8-10.44); Carbon Dioxide 23 mmol/L (23-31); Chloride 109 mmol/L (98-107); Estimated GFR-MDRD Greater than 90; Globulin 2.2 g/dL (2.4-3.5); Glucose 98 mg/dL (83-110); Potassium 4.4 mmol/L (3.5-5.1); Protein, Total 5.5 g/dL (6.0-8.3); Sodium 138 mmol/L (136-145)
[2019-12-09 15:55] LABS: HBCM Index 0.06 S/CO (0-0.79); HBSAg Index 0.19 S/CO (0-0.99); HIV (1/2) Antibody/Antigen Non-Reactive (NonReactive); HIV 1/2 INDEX 0.37 S/CO (<1.00); Hep A IgM AB Non-Reactive (NonReactive); Hep A IgM S/CO 0.27 S/CO (0-0.79); Hep B Surf Ag Non-Reactive S/CO (NonReactive); Hep C IgG Ab Non-Reactive (NonReactive); Hep C Index 0.12 S/CO (0-0.79); Hepatitis B Core IgM Abs Non-Reactive (NonReactive)
[2019-12-09 15:58] LABS: Syphilis Antibody Nonreactive (Nonreactive); Syphilis Antibody Index 0.05 S/CO (<1.00 Non-Reactive)
[2019-12-09] MEDS: Lactated Ringer's 1,000 ML IV SCH (17:21)
[2019-12-09] MEDS: MEROPENEM 1 GM/50 ML 1 GM in Premix Bag 1 BAG IVPB SCH (17:22)
--- NOTE | 2019-12-09 20:06 | CON ---
DATE OF CONSULTATION: 12/09/2019 REASON FOR CONSULTATION: Fever, bandemia, abnormal liver function tests. HISTORY OF PRESENT ILLNESS: A 74-year-old whom I had recently evaluated at the beginning of October when she presented with a history of Parkinson disease, asthma , COPD, and osteoarthritis with severe functional impairment, wheelchair-bound state. In September, she had a fever and nausea or genitourinary symptoms. The urinalysis was abnormal and COVID test was negative. Urine culture revealed E coli with an ESBL phenotype. She was given Rocephin, vancomycin, and Zosyn and discharged on oral Bactrim. Subsequently, she had recurrence of symptoms of dysuria, fever, and general malaise. She was readmitted. The temperature was 101.8 and she was tachycardic. O2 saturations were 98. White cell count is 3000 and creatinine 0.58. Urinalysis with [address] abdomen and pelvis did not show any abnormality. She was given meropenem with improvement and was transferred to custodial with ertapenem, which she took it there for about 10 days. After that, she went back home and was doing well until when she went to see her doctor who told her that she had abnormal urinalysis. It is not clear to me that the sample was submitted for culture, but was referred to Urology, but did not have an appointment until December. The day before admission, she developed general malaise and chills, did not measure her temperature, came to the emergency room, was given meropenem and IV fluids, and admitted. Her temperature in the emergency room was 99.5 and O2 saturations were 97 on room air. Other findings included a white cell count 9.1 with 40% bands. The remarkable findings in the labs were the liver function tests, which were clearly abnormal elevation in total bilirubin, gamma-GT, AST, ALT, alkaline phosphatase. Albumin is 3.6. Procalcitonin was 2.19. The 2nd procalcitonin went up to 10.38. Thus far, the blood cultures and urine culture, no growth yet. An abdominal ultrasound with focus on the upper quadrant showed normal findings. There was evidence of hepatic steatosis though. Currently, Ms. Geiger does not appear to be in distress, a little bit apprehensive. She did have headaches yesterday, but not today. No vomiting. No sore throat, chest pain, cough, or shortness of breath. It is not clear if she truly had dysuria or not. She is not very consistent with information. No diarrhea. She has diffuse joint pains from osteoarthrosis and the worst joints are knees and right shoulder. The symptoms have not changed pretty much. PAST MEDICAL HISTORY: 1. Parkinson disease. 2. Osteoarthrosis. 3. COPD. 4. GERD. 5. Recurrent UTIs, the last one treated with Invanz because it was ESBL organism. SURGICAL HISTORY: 1. Cholecystectomy. 2. Tubal ligation. FAMILY HISTORY: Noncontributory. SOCIAL HISTORY: Leaves at [facility]. Former smoker. CURRENT MEDICATION LIST: 1. DuoNeb. 2. Symmetrel. 3. Sinemet. 4. Lovenox. 5. Lexapro. 6. Lactated Ringer's. 7. Pantoprazole. 8. MiraLAX. PHYSICAL EXAMINATION: VITAL SIGNS: She is saturating at 99, breathing anywhere from 16 to 23 times a minute, and pulse 100. SKIN: Peripheral IV access. No lymphadenopathy. HEENT: Ocular movements conjugate. Oral cavity normal except for dentures. NECK: Supple. No jugular vein distention. LUNGS: Symmetric, clear breath sounds. HEART: S1 and S2. Regular rate without murmurs. ABDOMEN: Soft without tenderness, maybe a little bit of tenderness in the suprapubic area, particularly when she coughs. EXTREMITIES: Osteoarthrosis in multiple joints, most severe in right shoulder and knees. No edema. Pulses are 1+ in dorsalis pedis. She is able to wiggle her toes, but marked mobility impairment due to her chronic osteoarthrosis and deconditioning. NEUROLOGIC: She is oriented, follows commands. Speech appears to be normal. LABORATORY DATA: Followup labs: White cell count down to 5.8, hemoglobin 11.9, platelets 130, and 86% neutrophils. Creatinine 0.6. Repeat bilirubin 2.4, AST down to 291, ALT 61, and alkaline phosphatase 172. ASSESSMENT: 1. Parkinson disease. 2. Osteoarthrosis. 3. Functional impairment. 4. Recurrent abnormal urinalysis with positive cultures, at least some of the clinical information is consistent with an invasive urinary tract infection in the past. 5. Now abnormal liver function tests. DISCUSSION: Differential diagnosis includes transient bacteremia with the abnormalities in the liver function tests or primary hepatobiliary problem. Possibility of drug related toxicities considered and infection is the more likely scenario. In view of the bandemia and elevated procalcitonin, we will go ahead and restart meropenem. Dr. Smith is going to order an MRCP, but he does not believe that there is an enough clinical evidence to suggest obstruction at this point in time. May have to repeat the abdomen and pelvis CT with contrast. Job ID: [id number]
[2019-12-09] MEDS: Acetaminophen 325 MG TAB PO PRN (20:50)
[2019-12-09] MEDS: Escitalopram Oxalate 20 mg Tablet PO SCH (20:53)
[2019-12-09] MEDS ORDERED: Morphine 2 MG/ML VIAL SLOW IVP SCH (22:45)
[2019-12-09] MEDS ORDERED: Carbidopa/Levodopa CR 50-200 mg Tablet PO SCH (23:00)
[2019-12-10] MEDS: Lactated Ringer's 1,000 ML IV SCH ×4 (00:29→20:46)
[2019-12-10] MEDS: MEROPENEM 1 GM/50 ML 1 GM in Premix Bag 1 BAG IVPB SCH ×3 (01:41→17:42)
[2019-12-10 06:15] LABS: ALT (SGPT) 50 U/L (8-55); AST (SGOT) 151 U/L (5-34); Albumin 3.3 g/dL (3.4-4.8); Alkaline Phosphatase 164 U/L (40-110); Anion Gap 9 mmol/L (10-20); BUN (Urea Nitrogen) 13 mg/dL (9.8-20.1); Bilirubin, Total 1.3 mg/dL (0.2-1.2); Calc. Creatinine Clearance 121 mL/min (70-130); Calcium 8.1 mg/dL (7.8-10.44); Carbon Dioxide 23 mmol/L (23-31); Chloride 110 mmol/L (98-107); Estimated GFR-MDRD Greater than 90; Globulin 1.9 g/dL (2.4-3.5); Glucose 85 mg/dL (83-110); Protein, Total 5.2 g/dL (6.0-8.3); Sodium 138 mmol/L (136-145)
--- NOTE | 2019-12-10 06:27 | PDOC.FM ---
- Subjective Subjective: Overnight, the patient's O2 sats dropped to 92 on RA, requiring 2L NC. The patient says she has been diagnosed with SHOAIB but does not uses a cpap at home as instructed. She reports a brief episode of SOB overnight but denies SOB now. She denies chills, headache, vision changes, chest pain, abdominal pain, dysuria , urinary frequency and edema. - Objective MAR Reviewed: Yes Vital Signs & Weight: Vital Signs (12 hours) Temp Pulse Resp BP BP Pulse Ox 12/10/19 04:00 98.2 F 98 20 133/73 92 L 12/10/19 02:21 98 16 95 12/09/19 23:35 98.6 F 102 H 20 122/65 94 L 12/09/19 21:08 105 H 12/09/19 20:00 98.3 F 111 H 20 150/74 H 94 L 12/09/19 19:18 96 16 93 L 12/09/19 18:48 92 L Weight Weight 99 kg I&O: 12/08/19 12/09/19 12/10/19 06:59 06:59 06:59 Intake Total 320 Balance 320 Result Diagrams: 12/10/19 05:37 12/10/19 05:38 Phys Exam - Physical Examination Constitutional: NAD HEENT: moist MMs, sclera anicteric Neck: supple, full ROM Respiratory: no wheezing, clear to auscultation bilateral Cardiovascular: RRR, no significant murmur Gastrointestinal: soft, non-tender, no distention, positive bowel sounds Musculoskeletal: no edema, pulses present Neurological: non-focal, moves all 4 limbs Lymphatic: no nodes Psychiatric: normal affect, A&O x 3 Skin: no rash, normal turgor Dx/Plan - Plan Plan: SIRS 2/2 transient bacteremia vs. primary hepatobiliary problem Met SIRS criteria due to bands and tachycardia. Previous Hx ESBL E-coli pyelo 1 month ago treated with 14 day course of meropenem. Dirty UA with negative nitrates, bacteria suggestive of colonization. CBC on admission showed +40 bands. Procal 2.1 -> 10.38 -> 7.5. Dr. Leos (ID), Dr. Smith (GI), and Dr. Chance (urology) consulted. GGT elevated at 193. B12 and folate WNL. 1/2 BCx + coagulase negative staph. MRCP today showed no hepatic or biliary abnormality, incidental 6mm high T2 focus in pancreatic body which may represent small cyst. - Continue meropenem per Dr. Leos - Continue LR @ 140 for maintenance fluids - Tylenol PRN for pain - F/u urine and blood cultures - F/u Dr. Leos' recs - F/u Dr. Smith recs - F/u Dr. Chance recs - Daily CBC/CMP - Trend procal daily Tranasminitis AST 265 -> 404 -> 291 -> 151. ALT 40 -> 245 -> 61 -> 50. GGT 193. RUQ US showed fatty liver with CBD 6mm. Cause likely mild hepatic ischemia due to transient hypoperfusion and sepsis. MRCP completed today and showed no hepatic or biliary abnormality. - Daily CMP A Flutter on EKG Denies history of Afib/Aflutter. Likely 2/2 infection. Patient has been in NSR since admission. - Monitor on tele Hx COPD Sats in the high 90s on RA. Episode of 92 overnight requiring 2L NC, indicating possible SHOAIB. - Continue home meds/inhalers Hx Parkinsons -Continue home carbidopa/levodopa SHOAIB O2 sats dropped to 92 on RA overnight, requiring 2L NC. Patient has a CPAP at home but does not use it. -CPAP at night DVT PPx: lovenox PCP: Kojo Code Status: DNI-DNR Disposition: Home pending specialist recs Addendum - Attending - Attending Attestation Date/Time: 12/10/19 3962 I personally evaluated the patient and discussed the management with Dr. Chappell. I agree with the History, Examination, Assessment and Plan documented above with any addition or exceptions noted below. MRCP negative for stone. Continuing meropenem and awaiting blood cultures. ID on board and Uro consulted.
--- NOTE | 2019-12-10 07:11 | CON ---
DATE OF CONSULTATION: REASON FOR CONSULTATION: GI consult for abnormal liver enzymes. HISTORY OF PRESENT ILLNESS: Ms. Geiger is a 74-year-old female, who is admitted today to the hospital for possible urinary tract infection, was found to have elevated liver enzymes and I have been asked to see her. She reports that she has not had abnormal liver function tests in the past as far she knows. She had hepatitis A, B, and C negative in the emergency room and negative COVID test as well. She reports she was here for urinary tract infection; however, she denies any urinary frequency or urgency. She states that she has had a urinary tract infection recurrently past several months, was hospitalized in October and November. On reviewing her records, she was here from 09/19 to 09/21 with fever and no other symptoms. At that time, she had E coli in her urine. She was treated as having UTI. She was readmitted in early October again with UTI. At that time, she did have some dysuria. CT showed no overt calcified stone and no ductal dilatation at that time. On admission, her LFTs were up a bit with a bilirubin of 1.4 and AST and ALT of 72 and 48, ultimately came down to normal and by the time she was discharged her bilirubin was 0.4 with AST and ALT of 10 and 15, alkaline phosphatase of 93. During that admission, she had negative blood and urine cultures, seen by Dr. Leos at that time who put her on extended beta-lactamase. Prior to that, she had been on Bactrim for about 10 days. When she was sent home the second time, she went home on Invanz. Otherwise, she denies any dysphagia or odynophagia. Denies any pain similar to when she had before her cholecystectomy. She denies any nausea or vomiting. She states her appetite has been good. She does have some back pain which is low in the right flank region. Again at this time, she denies any nausea or vomiting, anterior abdominal pain, dysuria, frequency, or urgency. ALLERGIES: NONE KNOWN. MEDICATIONS: 1. Carbidopa/levodopa. 2. Aspirin. 3. Celebrex. 4. Pantoprazole. 5. Amantadine. 6. Escitalopram. 7. Ipratropium. 8. Albuterol. 9. Dulera. 10. MiraLAX p.r.n. 11. Invanz. PRESENT MEDICATIONS: 1. Tylenol. 2. DuoNeb. 3. Symmetrel. 4. Ecotrin. 5. Sinemet. 6. Celebrex. 7. Lovenox. 8. Lexapro. 9. LR 140 and hour. 10. Meropenem. 11. Dulera. 12. Protonix. 13. MiraLAX. REVIEW OF SYSTEMS: Negative for pruritus, upper abdominal pain, indigestion. She has had some reflux in the past. She denies any dysphagia presently, although she has had dilations in the past for this. PAST MEDICAL HISTORY: COPD/asthma, Parkinson, chronic right knee pain, reflux, previous esophageal dilatation. She also has a partial paralyzed right shoulder that she just woke up with one day. PAST SURGICAL HISTORY: Cholecystectomy about 20 years ago. Tubal ligation. SOCIAL HISTORY: Former smoker, greater than 10 years ago. No alcohol. No drugs. PHYSICAL EXAMINATION: VITAL SIGNS: Temperature is 98.5, pulse 100, blood pressure is 120s over 70s, T-max 99.5 in the emergency room. GENERAL: She is resting in bed. She had a slight tremor. She has a frozen right shoulder. She has no distress. She is alert, oriented to person, place and time. She is nonicteric. Oropharynx is slightly dry. NECK: Supple. LUNGS: Clear. HEART: Regular without clicks or murmurs. ABDOMEN: Notable for well-healed scar in the right upper quadrant consistent with open cholecystectomy. There is no tenderness, rebound or guarding in the upper abdomen. There is no evidence of palpable hepatosplenomegaly or ascites, shifting dullness or fluid wave. Lower abdomen reveals no evidence of hernias. EXTREMITIES: Reveal no clubbing, cyanosis, or edema. She has a little bit of tenderness in the low back, more in the right flank, not really near region of the right shoulder blade at all. LABORATORY STUDIES: Today, white count 141, potassium 4.2, chloride 109, BUN and creatinine are 18 and 0.6, glucose is 118, calcium is 8. Bilirubin is 2.5, last night it was 0.9. AST and ALT are 404 and 245, yesterday were 265 and 40, alkaline phosphatase is 184, yesterday it was 120, but this afternoon, the bilirubin has come down to 2.4 from 2.5 that was about 3 p.m. this afternoon. AST is down to 219, ALT 61, alkaline phosphatase is 172, total protein 5, albumin 3.3. ASSESSMENT: Recurrent illness with fever and chills. The only positive culture she has had has been E coli in the urine. In September and October, there were no positive cultures. She was treated as recurrent urinary tract infection at that time. On this evaluation, she was noted to have elevated liver enzymes. AST was 260, then went to 400, then 291 and ALT that went from 40, which was normal at 245 and then 61. Alkaline phosphatase also went from normal to 120 to 184, then 172, bilirubin from 0.9 and 2.5 to 2.4. She had a transient elevation of liver enzymes back in October as well, but nowhere near these levels. Differential diagnosis would include hepatic effective mild sepsis including mild hepatic ischemia as her pressure was a little bit low for a time. In the ER, the systolic dropping into the 90s at least once. Possibility of a biliary etiology would be to something to consider, her common duct was measured at 6 mm on ultrasound this admission here. She had some fatty liver on that study. A CAT scan on previous admissions here showed no evidence of biliary ductal dilatation. She has had not any classic biliary symptoms, but she is fairly elderly and she may not have classic symptoms. Medications could be behind this, but it would be unlikely for them to go up and down so quickly. RECOMMENDATIONS: Continue IV fluids. Get an MRCP and check her biliary tree. Would follow her liver function test. I suspect this is going to be more an issue with transient hypoperfusion of the liver and sepsis. We will follow along with you and follow up on the results of her imaging studies. Job ID: [id number]
[2019-12-10] MEDS: Mometasone 100 MCG/Formoterol 5 MCG 120 PUFF INHALER INH SCH ×2 (07:22→18:30)
[2019-12-10 08:07] LABS: Band 13 % (5-11); Eosinophils 1 % (0-10); Hemoglobin 10.8 g/dL (12.0-16.0); Lymphocytes 28 % (21-51); MDiff Complete? YES; Mean Corpuscular HGB CONC 33.8 g/dL (32.0-36.0); Mean Corpuscular Hemoglobin 34.2 pg (27.0-31.0); Mean Platelet Volume 9.6 fL (7.4-10.4); Monocytes 11 % (0-10); Neutrophil 47 % (42-75); Platelet Count 111 thou/uL (130-400); Platelet Morphology Comment Appears Decreased; Polychromasia SLIGHT = 2-3 cells (100X) (0-2/hpf); RBC Distribution Width 14.9 % (11.5-14.5); Red Blood Cell (RBC) Count 3.16 mill/uL (4.20-5.40); White Blood Cell (WBC) Count 3.2 thou/uL (4.8-10.8)
--- NOTE | 2019-12-10 08:45 | MRI ---
EXAM: MRI of the abdomen without contrast COMPARISON: Ultrasound abdomen 12/09/2019 HISTORY: Elevated LFTs TECHNIQUE: Multiplanar multi sequence MR images were taken of the abdomen without IV contrast. An MRC P was performed. FINDINGS: Liver: No focal liver lesions or intrahepatic ductal dilatation. Normal signal without dropout on out of phase images. Gallbladder: Absent Common bile duct: Normal caliber without filling defects Adrenal glands: Unremarkable. Kidneys: No hydronephrosis or focal renal lesions. Spleen: Unremarkable. Pancreas: 6 mm focus of high T2 signal in the pancreatic body adjacent to the pancreatic duct may rep resent a small cyst.. Retroperitoneum: No enlarged lymph nodes Bones: No marrow signal abnormality. IMPRESSION: 1. No hepatic or biliary abnormality 2. Incidental 6 mm high T2 focus in the pancreatic body may represent a small cyst.
[2019-12-10] MEDS: traMADol HCl 50 MG TAB PO PRN ×2 (09:51→16:16)
[2019-12-10] MEDS: Enoxaparin Sodium 40 MG/0.4 ML SYRINGE SC SCH (09:52)
[2019-12-10] MEDS: Carbidopa/Levodopa CR 50-200 mg Tablet PO SCH ×3 (09:53→21:55)
[2019-12-10] MEDS: CeleCOXIB 100 MG CAP PO SCH (09:54)
[2019-12-10] MEDS: Aspirin 81 mg Enteric Coated Tablet PO SCH (09:54)
[2019-12-10] MEDS: Amantadine HCl 100 mg Capsule PO SCH ×2 (09:55→21:55)
[2019-12-10] MEDS: Carbidopa/Levodopa 25-100 mg Tablet PO SCH ×3 (09:55→21:56)
[2019-12-10] MEDS ORDERED: Capsaicin 0.025% Cream 60 gm Tube TOP PRN (15:01)
--- NOTE | 2019-12-10 18:05 | PRG ---
DATE OF SERVICE: 12/10/2019 SUBJECTIVE: Ms. Geiger has been lying on her back and has some back discomfort associated with that. She has had no abdominal pain, nausea, or vomiting today. OBJECTIVE: VITAL SIGNS: Temperature is 97.9, pulse 93, blood pressure 136/79. GENERAL: She is in no acute distress. Alert and oriented x3. LUNGS: Clear to auscultation bilaterally. HEART: Regular rate and rhythm without murmur. ABDOMEN: Soft, nontender, and nondistended. Bowel sounds are present. EXTREMITIES: No lower extremity edema. LABORATORY DATA: White blood cell count 3.2, hemoglobin 10.8, MCV 101, platelets 111. Bilirubin 1.3, AST 151, ALT 50, alkaline phosphatase 164, albumin 3.3. IMPRESSION: Abnormal liver tests. She has a mixed cholestatic and hepatocellular injury pattern. MRI is negative for a biliary stone. She could have elevated liver tests secondary to infectious process including UTI, if there is sepsis associated or she could have medication side effect or she could have had ischemic hepatopathy. Ischemic hepatopathy is thought to be less likely, given that she did not also have any bump in her creatinine. Usually, I will see in acute renal failure, prerenal azotemia associated with an ischemic hepatopathy. Her liver tests improving. It is also possible that she has some underlying cirrhosis, given the low albumin and pancytopenia; however, her liver tests prior to this have always been normal. RECOMMENDATIONS: Continue to follow the of her liver tests. If they continue to improve, then no further intervention should be necessary from a liver standpoint, we can follow up in the office to follow the trend of her liver tests over time. Job ID: [id number]
[2019-12-10] MEDS: Ketorolac Tromethamine 30 MG/ML VIAL IVP SCH (18:14)
[2019-12-10] MEDS: Escitalopram Oxalate 20 mg Tablet PO SCH (21:57)
[2019-12-11] MEDS: traMADol HCl 50 MG TAB PO PRN ×4 (00:52→23:09)
[2019-12-11] MEDS: Meropenem 1 GM in Sodium Chloride 0.9% 100 ML IVPB SCH ×2 (01:04→10:00)
[2019-12-11] MEDS: Lactated Ringer's 1,000 ML IV SCH ×3 (02:44→18:15)
--- NOTE | 2019-12-11 06:01 | PDOC.FM ---
- Subjective Subjective: The patient complains of chronic right shoulder pain and says "nothing you've given me helps. Morphine is the only thing that works. I'm going to leave here and go to a hospital that will give it to me." When an alternative medication was offered, the patient refused and requested morphine. She denies chest pain, SOB and abdominal pain. - Objective MAR Reviewed: Yes Vital Signs & Weight: Vital Signs (12 hours) Temp Pulse Resp BP Pulse Ox 12/11/19 01:57 94 24 H 96 12/11/19 00:00 98.6 F 99 18 147/71 H 94 L 12/10/19 21:45 99 95 12/10/19 20:00 98.3 F 106 H 18 148/80 H 91 L 12/10/19 18:30 99 12 94 L Weight Weight 99 kg I&O: 12/09/19 12/10/19 12/11/19 06:59 06:59 06:59 Intake Total 320 2720 Output Total 700 Balance 320 2020 Result Diagrams: 12/11/19 05:47 12/11/19 05:47 Phys Exam - Physical Examination Constitutional: NAD HEENT: moist MMs, sclera anicteric Neck: supple, full ROM Respiratory: no wheezing, clear to auscultation bilateral Cardiovascular: RRR, no significant murmur Gastrointestinal: soft, non-tender, positive bowel sounds Musculoskeletal: no edema, pulses present Neurological: non-focal, moves all 4 limbs Baseline hand tremor bilaterally Lymphatic: no nodes Psychiatric: A&O x 3 Deviation from normal: Appears agitated. Speaks in raised voice. Skin: no rash, normal turgor Dx/Plan - Plan Plan: SIRS 2/2 transient bacteremia vs. primary hepatobiliary problem Met SIRS criteria due to bands and tachycardia on admission. Previous Hx ESBL E- coli pyelo 1 month ago treated with 14 day course of meropenem. Dirty UA with negative nitrates, bacteria suggestive of colonization. UCx negative. Procal 2.1 -> 10.38 -> 7.5 -> 4.15. Dr. Leos (ID), Dr. Smith (GI), and Dr. Chance ( urology) consulted. 1/2 BCx + coagulase negative staph, MRSE. MRCP on 12/09 showed no hepatic or biliary abnormality. - Continue meropenem IV - Continue LR @ 140 for maintenance fluids - Daily CMP - if LFTs continue to improve, no intervention needed per GI - F/u Dr. Leos' recs for outpatient antibiotics - F/u Dr. Chance recs - PT today - nursing reports patient unsteady on feet Tranasminitis AST 265 -> 404 -> 291 -> 151 -> 60. ALT 40 -> 245 -> 61 -> 50 -> 29. GGT elevated at 193. B12 and folate WNL. RUQ US showed fatty liver with CBD 6mm. MRCP showed no hepatic or biliary abnormality. Cause possibly transient gallstone obstruction. Could also be infectious vs. medication vs. ischemic hepatopathy vs. cirrhosis. - Daily CMP - F/u GI outpatient to monitor LFTs A Flutter on EKG Denies history of Afib/Aflutter. Likely 2/2 infection. Patient has been in NSR since admission. - Monitor Hx COPD Sats in the mid 90s on RA - Continue home meds/inhalers Hx Parkinsons Has baseline hand tremor. -Continue home carbidopa/levodopa SHOAIB Patient has a CPAP at home but does not use it. -CPAP at night Chronic right shoulder pain 2/2 arthritis Patient attributes pain to chronic arthritis. Patient on celecoxib 200mg daily and Tylenol 650mg Q4H PRN at home. Received Toradol 30mg IVP yesterday, previously said this resolved her pain but now says it didn't. Given the arthritic origin of the pain, morphine is not appropriate. -Celecoxib 200mg daily -Tylenol 650mg Q4H PRN -Tramadol 50 PO Q6H PRN -Capsaicin 0.025% cream daily DVT PPx: lovenox PCP: Kojo Code Status: DNI-DNR Disposition: Patient has refused placement but is agreeable to home with HH. Pending outpatient antibiotic recs. Addendum - Attending - Attending Attestation Date/Time: 12/11/19 5089 I personally evaluated the patient and discussed the management with Dr. Chappell. I agree with the History, Examination, Assessment and Plan documented above with any addition or exceptions noted below. Patient sitting in chair and feeling ok. She does not complain of pain at this time. Awaiting final recs regarding abx management in the outpatient setting and will then work on disposition. No GI intervention planned or needed at this time.
[2019-12-11 06:11] LABS: #Lymphocytes 0.7 thou/uL (1.20-3.40); #Monocytes 0.4 thou/uL (0.11-0.59); #Neutrophils 2.4 thou/uL (1.40-6.50); %Basophils 1.2 % (0.0-1.0); %Eosinophils 0.8 % (0.0-10.0); %Lymphocytes 19.1 % (21.0-51.0); %Monocytes 12.3 % (0.0-10.0); %Neutrophils 66.6 % (42.0-75.0); Hemoglobin 10.8 g/dL (12.0-16.0); Mean Corpuscular HGB CONC 32.4 g/dL (32.0-36.0); Mean Corpuscular Hemoglobin 32.1 pg (27.0-31.0); Mean Platelet Volume 9.4 fL (7.4-10.4); Platelet Count 117 thou/uL (130-400); RBC Distribution Width 14.8 % (11.5-14.5); Red Blood Cell (RBC) Count 3.35 mill/uL (4.20-5.40); White Blood Cell (WBC) Count 3.6 thou/uL (4.8-10.8)
[2019-12-11 06:26] LABS: ALT (SGPT) 29 U/L (8-55); AST (SGOT) 60 U/L (5-34); Albumin 3.4 g/dL (3.4-4.8); Alkaline Phosphatase 149 U/L (40-110); Anion Gap 10 mmol/L (10-20); BUN (Urea Nitrogen) 12 mg/dL (9.8-20.1); Bilirubin, Total 0.8 mg/dL (0.2-1.2); Calc. Creatinine Clearance 139 mL/min (70-130); Calcium 8.6 mg/dL (7.8-10.44); Carbon Dioxide 26 mmol/L (23-31); Chloride 107 mmol/L (98-107); Estimated GFR-MDRD Greater than 90; Glucose 100 mg/dL (83-110); Potassium 4.1 mmol/L (3.5-5.1); Protein, Total 5.4 g/dL (6.0-8.3); Sodium 139 mmol/L (136-145)
[2019-12-11] MEDS: Mometasone 100 MCG/Formoterol 5 MCG 120 PUFF INHALER INH SCH ×2 (06:31→20:20)
[2019-12-11] MEDS: Amantadine HCl 100 mg Capsule PO SCH ×2 (10:01→20:41)
[2019-12-11] MEDS: CeleCOXIB 100 MG CAP PO SCH (10:01)
[2019-12-11] MEDS: Enoxaparin Sodium 40 MG/0.4 ML SYRINGE SC SCH (10:01)
[2019-12-11] MEDS: Carbidopa/Levodopa CR 50-200 mg Tablet PO SCH ×3 (10:02→20:40)
[2019-12-11] MEDS: Carbidopa/Levodopa 25-100 mg Tablet PO SCH ×3 (10:02→20:42)
[2019-12-11] MEDS: Aspirin 81 mg Enteric Coated Tablet PO SCH (10:03)
[2019-12-11] MEDS: Polyethylene Glycol 3350 17 GM Packet PO SCH (10:04)
[2019-12-11] MEDS: Acetaminophen 325 MG TAB PO PRN ×2 (10:05→20:39)
--- NOTE | 2019-12-11 12:40 | PRG ---
DATE OF SERVICE: 12/11/2019 SUBJECTIVE: Ms. Geiger is sitting by the bedside. She is feeling better after getting out of bed. She denies any headaches. No shortness of breath or cough. No abdominal pain. She is voiding without any symptoms of dysuria. She has weakness in all 4 extremities with stiffness and osteoarthrosis, but those are chronic things. No diarrhea. OBJECTIVE: GENERAL: She has remained afebrile since admission and in the emergency room, she was afebrile as well. VITAL SIGNS: The pulse is 92 and O2 saturations are 97% on room air, and blood pressure 150/80. NEUROLOGIC: The exam shows that resting tremor in the right upper extremity. She is awake, oriented, follows commands. Speech appears to be normal. HEENT: Ocular movements are conjugate. Sclerae white. Pupils are equal. Conjunctivae normal. Oral cavity is not remarkable. LUNGS: With bibasilar faint inspiratory crackles, particularly on the left side. HEART: S1 and S2, regular rate. ABDOMEN: Soft. Not distended or tender. No bladder distention. EXTREMITIES: Chronic osteoarthrosis in knees. She is able to move extremities with limitations. Her cognitive function appears to be intact. Again, I inquired regarding the previous urinary symptoms as she does not recall having ever had dysuria and she denies any difficulty with swallowing. She sleeps flat at night and has had issues with esophageal strictures in the past. LABORATORY DATA: WBC count was 9.1 on arrival down to 3.6, hemoglobin 10.8, MCV 99, and the platelets are down to 117. She had 40% bands on arrival down to 13 now, and creatinine is 0.54. The transaminase elevation has resolved now. The alkaline phosphatase also has remained a little bit elevated. The bilirubin has normalized. It was peaked at 2.5. It is down to 0.8 at this time. COVID was not detected and microbiology showed coagulase-negative Staph, which 1/2 cultures most likely contaminant of the sample. The urine culture final result with a straight catheter with less than 10,000 CFUs of mixed skin kimmie. The urine culture in October 27 with 25,000 to 50,000 CFUs as well. The patient had an abdomen MRI completed on December 09 and this showed no focal liver lesions. No intrahepatic ductal dilatation. Gallbladder was absent. Common bile duct with normal caliber. No filling defects. The kidneys were normal. Spleen was not remarkable. Retroperitoneum was okay, so was nonrevealing. She had a chest x-ray on December 07, which showed subtle right lower lobe infiltrate. ASSESSMENT: Parkinson disease, recurrent fever episodes without precise diagnosis thus far; although, there is abnormality in the urinalysis. The cultures are not particularly remarkable and this pyuria could not be associated with the patient's signs and symptoms that led to admission. One thing that we have not look for and need to be considered is thromboembolic disorder in view of her mobility impairment. We will go ahead and order a CT angio. The other possibility would be respiratory tract infection with pneumonia, which is very prevalent in patients with Parkinson disease, particularly since she has had esophageal strictures in the past, so go ahead and order a CT angio. I do not think that prescribing antimicrobials at this point is going to be the best course of action in the absence of a firm diagnosis. Job ID: [id number]
--- NOTE | 2019-12-11 14:42 | CT ---
CT arteriogram chest with IV contrast and 3-D imaging HISTORY: Dyspnea. Fever. FINDINGS: There is good contrast opacification pulmonary arteries and thoracic aorta with normal bran daniel of the great vessels at the aortic arch. Small amount of fluid within the dependent portion of the right pleural space. Compressive atelectasis at the right anterior and posterior lung base. No lobar consolidation, pneumothorax, or mediastinal adenopathy. Old left rib fractures. IMPRESSION : No CT evidence of pulmonary embolus. Very small right pleural effusion. Cause is not evident.
[2019-12-11] MEDS ORDERED: Iopamidol-370 76% 500 ML 1 ML ONE (15:19)
--- NOTE | 2019-12-11 16:17 | PRG ---
DATE OF SERVICE: 12/11/2019 REASON FOR CONSULTATION: Elevated LFTs. SUBJECTIVE: Overnight, there were no acute events or problems, but this morning, the patient was having significant pain in both her heels and her right shoulder due to her inability to move from the bed and underlying weakness associated with this hospitalization. Otherwise, she denied any nausea, vomiting, fevers, chills, abdominal pain, hematemesis, melena, or hematochezia. OBJECTIVE: VITAL SIGNS: Temperature 98.5, pulse 93, blood pressure 161/79, respiratory rate 20, saturating 99% on room air. GENERAL: The patient was lying in bed, in no acute distress. Alert and oriented x4. CARDIOVASCULAR: Regular rate and rhythm. RESPIRATORY: Clear to auscultation bilaterally. ABDOMEN: Normoactive bowel sounds. Soft, nontender, nondistended. EXTREMITIES: No cyanosis, clubbing, or edema. LABORATORY DATA: CBC with a white blood cell count 3.6, hemoglobin 10.8, hematocrit 33.2, and platelets 117. Chemistry with a sodium of 139, potassium 4.1, chloride 107, CO2 of 26, BUN 12, creatinine 0.54, glucose 100, AST 60, ALT 29, alkaline phosphatase 149, and total bilirubin 0.8. IMAGING DATA: No current GI imaging is available for review. ASSESSMENT AND PLAN: The patient is a 74-year-old female with past medical history of chronic obstructive pulmonary disease/asthma; Parkinson disease; chronic right knee pain; gastroesophageal reflux disease; esophageal stricture, status post dilation; and right frozen shoulder; presenting with urosepsis and elevated LFTs. Elevated LFTs. The patient had initially presented with what appeared to be urosepsis associated with urinary tract infection. However, upon initial evaluation of her labs, she was noted to have significantly elevated LFTs in primarily a hepatocellular distribution. However, during the course of this hospitalization and with adequate treatment of her infection, these have been downtrending since then. She also underwent MRCP during this admission, which showed no evidence of cholelithiasis or choledocholithiasis that could potentially contribute to her elevated LFTs. Today, her LFTs have almost returned to normal with adequate treatment/resuscitation for her infection. At this time, the most likely explanation for her elevated LFTs would be the underlying sepsis that is currently responding to treatment. RECOMMENDATIONS: 1. We will continue to trend her LFTs until normalization. 2. Continue with antibiotic treatment as part of sepsis/urosepsis. 3. Pain control per Primary Team. Given almost complete normalization of her LFTs at this time with the likely etiology being her sepsis that is adequately being treated, we will sign off. Please call with any additional questions. Job ID: [id number]
[2019-12-11] MEDS ORDERED: MEROPENEM 1 GM/50 ML 1 GM in Premix Bag 1 BAG IVPB SCH (17:00)
[2019-12-11] MEDS: Ketorolac Tromethamine 30 MG/ML VIAL IVP SCH (18:14)
[2019-12-11] MEDS: Escitalopram Oxalate 20 mg Tablet PO SCH (20:39)
[2019-12-12] MEDS ORDERED: Amlodipine 5 MG TAB PO SCH ×2 (00:15→09:00)
[2019-12-12 06:21] LABS: ALT (SGPT) 49 U/L (8-55); AST (SGOT) 28 U/L (5-34); Albumin 3.2 g/dL (3.4-4.8); Alkaline Phosphatase 141 U/L (40-110); Anion Gap 11 mmol/L (10-20); BUN (Urea Nitrogen) 7 mg/dL (9.8-20.1); Bilirubin, Total 0.9 mg/dL (0.2-1.2); Calc. Creatinine Clearance 148 mL/min (70-130); Calcium 8.6 mg/dL (7.8-10.44); Carbon Dioxide 25 mmol/L (23-31); Chloride 104 mmol/L (98-107); Estimated GFR-MDRD Greater than 90; Globulin 2.2 g/dL (2.4-3.5); Glucose 89 mg/dL (83-110); Potassium 4.1 mmol/L (3.5-5.1); Protein, Total 5.4 g/dL (6.0-8.3); Sodium 136 mmol/L (136-145)
--- NOTE | 2019-12-12 06:57 | PDOC.FM ---
- Subjective Subjective: The patient says she feels better today, the best she has since being admitted. She reports mild edema overnight but says it resolved once LR was discontinued. She denies headache, chest pain, SOB, abdominal pain and dysuria. - Objective MAR Reviewed: Yes Vital Signs & Weight: Vital Signs (12 hours) Temp Pulse Resp BP Pulse Ox 12/12/19 04:00 98.5 F 107 H 18 154/75 H 94 L 12/12/19 01:15 105 H 12/11/19 23:32 98.2 F 105 H 20 159/62 H 94 L 12/11/19 20:42 90 16 95 12/11/19 20:00 98.2 F 88 20 170/90 H 96 Weight Weight 102.149 kg I&O: 12/10/19 12/11/19 12/12/19 06:59 06:59 06:59 Intake Total 320 2720 1950 Output Total 700 3050 Balance 320 2020 -1100 Result Diagrams: 12/11/19 05:47 12/12/19 05:45 Phys Exam - Physical Examination Constitutional: NAD HEENT: moist MMs, sclera anicteric Neck: no nodes, full ROM Respiratory: no wheezing, clear to auscultation bilateral Cardiovascular: RRR, no significant murmur Gastrointestinal: soft, non-tender, positive bowel sounds Musculoskeletal: no edema, pulses present Neurological: non-focal, moves all 4 limbs Resting tremor in hands bilat Lymphatic: no nodes Psychiatric: normal affect, A&O x 3 Skin: no rash, normal turgor Dx/Plan - Plan Plan: SIRS 2/2 transient bacteremia vs. primary hepatobiliary problem Met SIRS criteria due to bands and tachycardia on admission. Previous Hx ESBL E- coli pyelo 1 month ago treated with 14 day course of meropenem. Dirty UA with negative nitrates, bacteria suggestive of colonization. UCx negative. Procal 2.1 -> 10.38 -> 7.5 -> 4.15. Dr. Leos (ID), Dr. Smith (GI), and Dr. Chance ( urology) consulted. 1/2 BCx + coagulase negative staph, MRSE. MRCP on 12/09 showed no hepatic or biliary abnormality. Meropenem d/c'ed on 12/10. - GI signed off - Discontinued meropenem on 12/[address] Deric tavarez - PT recommended SNF vs. home with 24 hour supervision Tranasminitis AST 265 -> 404 -> 291 -> 151 -> 60 -> 28. ALT 40 -> 245 -> 61 -> 50 -> 29 -> 49. GGT elevated at 193. B12 and folate WNL. RUQ US showed fatty liver with CBD 6mm. MRCP showed no hepatic or biliary abnormality. Cause possibly transient gallstone obstruction. Could also be infectious vs. medication vs. ischemic hepatopathy vs. cirrhosis. - GI signed off. F/u GI outpatient to monitor LFTs Hypertensive episodes BP elevated overnight, max 170/90. LR d/c'ed. Started on amlodipine 5mg PO daily. BP now 150s/60-70s. -Continue amlodipine A Flutter on EKG Denies history of Afib/Aflutter. Likely 2/2 infection. Patient has been in NSR since admission. - Monitor Hx COPD Sats in the mid 90s on RA - Continue home meds/inhalers Hx Parkinsons Has baseline hand tremor. -Continue home carbidopa/levodopa SHOAIB Patient has a CPAP at home but does not use it. -CPAP at night Chronic right shoulder pain 2/2 arthritis Patient attributes pain to chronic arthritis. Patient on celecoxib 200mg daily and Tylenol 650mg Q4H PRN at home. Given the arthritic origin of the pain, morphine is not appropriate. -Celecoxib 200mg daily -Tylenol 650mg Q4H PRN -Tramadol 50 PO Q6H PRN -Capsaicin 0.025% cream daily DVT PPx: lovenox PCP: Kojo Code Status: DNI-DNR Disposition: Stable. Patient has refused placement. Wishes to go home with that is already established. She lives alone but daughter/close friends visit daily. Addendum - Attending - Attending Attestation Date/Time: 12/12/19 1126 I personally evaluated the patient and discussed the management with Dr. Chappell. I agree with the History, Examination, Assessment and Plan documented above with any addition or exceptions noted below. Patient feeling well. She has no further need for abx per ID. GI has signed off. PCT has downtrended nicely. Suspect her presentation was due to transient choledocholithiasis that self resolved based on her lab studies and MRCP. She is stable for discharge. PT has recommended placement but patient refuses to go anywhere but home at this time.
[2019-12-12] MEDS: Mometasone 100 MCG/Formoterol 5 MCG 120 PUFF INHALER INH SCH (07:50)
[2019-12-12] MEDS: CeleCOXIB 100 MG CAP PO SCH (08:53)
[2019-12-12] MEDS: Carbidopa/Levodopa CR 50-200 mg Tablet PO SCH ×2 (08:54→14:55)
[2019-12-12] MEDS: Aspirin 81 mg Enteric Coated Tablet PO SCH (08:54)
[2019-12-12] MEDS: Enoxaparin Sodium 40 MG/0.4 ML SYRINGE SC SCH (08:55)
[2019-12-12] MEDS: Carbidopa/Levodopa 25-100 mg Tablet PO SCH ×2 (08:56→14:56)
[2019-12-12] MEDS: Amantadine HCl 100 mg Capsule PO SCH (08:57)
[2019-12-12] MEDS: Polyethylene Glycol 3350 17 GM Packet PO SCH (08:58)
[2019-12-12] MEDS: traMADol HCl 50 MG TAB PO PRN ×2 (09:13→15:09)
--- NOTE | 2019-12-12 10:18 | PQF ---
CLINICAL DOCUMENTATION CLARIFICATION FORM: Dear Dr. Chappell/Attending Dr. Mena Date: 12/12/2019 Please exercise your independent, professional judgment in responding to the clarification form. Clinical indicators are provided on the bottom of this form for your review. Please check appropriate box(es) to clarify if the following diagnosis has been ruled in our ruled out: SEPSIS [ ] Ruled in diagnosis [ ] Continue to treat [ ] Resolved [ X ] Ruled out diagnosis [ ] Improving [ ] Cannot rule out diagnosis [ ] Other diagnosis [ ] Unable to determine In addition, please specify: Present on Admission (POA): [ ] Yes [ X ] No [ ] Unable to determine For continuity of documentation, please document condition throughout progress notes and discharge summary. Thank You. To be completed by CDI/Coding staff for physician review: CLINICAL INDICATORS - SIGNS / SYMPTOMS / LABS / RESULTS AND LOCATION IN MR / Sepsis 2/2 UTI 12/09-12/11 ([place]) SIRS 2/2 transient bacteremia vs. primary hepatobiliary problem. 12/10 ([facility]) A/P Today, her LFTs have almost returned to normal with adequate treatment/resuscitation for her infection. At this time, the most likely explanation for her elevated LFTs would be the underlying sepsis that is currently responding to treatment. RISK FACTORS / RESULTS AND LOCATION IN MR H&P / ([facility]): PMH COPD/asthma, Parkinsons, Freq UTIs A/P: Previous Hx ESBL E-coli pyelo x 1 month ago TREATMENTS / RESULTS AND LOCATION IN MR ID Consult 12/08 Order 12/09-12/10: Meropenem 1 gm IV Thank you, Dayami Esparza, RN, BSN [email or web address] This is a permanent part of the Medical Record [facility]
[2019-12-12 14:14] VITALS: BP 159/83; TEMP 98.2
--- NOTE | 2019-12-13 04:27 | DIS ---
DATE OF ADMISSION: 12/08/2019 DATE OF DISCHARGE: 12/12/2019 RESIDENT: Colleen Chappell MD ADMITTING ATTENDING: Orlin Vasquez MD DISCHARGE ATTENDING: Jerman Mena MD CONSULTS: Dr. Smith (Gastroenterology), Dr. Leos (infectious disease), Dr. Chance (Urology), OT, PT. PROCEDURES: MRCP completed on 12/09 showed no hepatic or biliary abnormality, incidental 6-mm high T2 focus in the pancreatic body that may represent a small cyst was noted. PRIMARY DIAGNOSIS: Transient choledocholithiasis. SECONDARY DIAGNOSES: Transaminitis resolved, history of chronic obstructive pulmonary disease, history of parkinsonism, history of obstructive sleep apnea, osteoarthritis. DISCHARGE MEDICATIONS: 1. Aspirin 81 mg p.o. daily. 2. Carbidopa and levodopa 25 mg-100 mg 1 tablet p.o. t.i.d. 3. Celebrex 200 mg p.o. daily. 4. Lexapro 10 mg p.o. daily. 5. Combivent 1 puff INH q.i.d. 6. Protonix 40 mg p.o. daily. 7. Acetaminophen 650 mg p.o. q.4h. p.r.n. 8. Zostrix 0.025% cream 1 g topical t.i.d. p.r.n. 9. Dulera 2 puffs INH b.i.d. 10. MiraLax 17 g p.o. daily. 11. Amantadine 100 mg p.o. b.i.d. DISCONTINUED MEDICATIONS: None. HISTORY OF PRESENT ILLNESS: The patient is a 74-year-old female, who presented to the ED with complaints of lower back pain, subjective fever associated with headache and generalized abdominal pain. This pain resolved in the ED. The patient met SIRS criteria due to 40 bands on CBC and tachycardia on admission. Sepsis criteria not met due to lack of infectious source. The patient was started on IV meropenem in the ED. UA in the ED was negative for nitrite and bacteria, suggesting colonization. Urine culture was negative. One out of two blood cultures was positive for coagulase-negative staph. Dr. Leos (Infectious Disease), Dr. Smith ( Gastroenterology), Dr. Chance (Urology) were consulted. Procalcitonin was trended during admission and was 2.1, then 10.38, then 7.5, then 4.15, then 1.96. Liver enzymes were initially elevated on admission (AST 265, ALT 40) and acutely increased (AST 405, ALT 245). They decreased daily afterward and transaminitis resolved prior to discharge. GGT was elevated at 193. Negative hepatitis panel and HIV. Right upper quadrant ultrasound showed fatty liver with CBD of 6 mm. MRCP was completed on 12/09 and showed no hepatic or biliary abnormalities. Meropenem was discontinued on 12/[address] Leos due to no source of infection. GI signed off on 12/11. They recommended followup with GI outpatient for further monitoring. PT and OT worked with the patient and both recommended placement of SNF or home with 24-hour supervision. The patient refused placement and said she would like to go home with the home health that is already established. She does live alone but said family members visit her daily. She was deemed stable for discharge on 12/11. Urology was unable to see the patient while inpatient, so patient will follow up outpatient. Given presentation with resolution of symptoms and improvement of LFTs, cause thought to be transient choledocholithiasis. DISPOSITION: Stable. DISCHARGE INSTRUCTIONS: 1. Location: Home with Home Health. 2. Diet: Heart healthy. 3. Activity: As tolerated. 4. Follow up with Dr. Varma (PCP) within 1 week. She will also follow up with GI and urology as outpatient. Job ID: [id number] [id number]
== END 2019-12-12 16:10 | disposition home health service (06) | DRG 445 ==
LOC: ERS 18:48 → ERHOLD 21:04 → T4-A 12-09 13:58
PROVIDERS: ADMIT Family Medicine; ATTEND Family Medicine
DX: K80.50 Calculus of bile duct without cholangitis or cholecystitis without obstruction (principal); I48.92 Unspecified atrial flutter; R65.10 Systemic inflammatory response syndrome (SIRS) of non-infectious origin without acute organ dysfunction; Z20.828 Contact with and (suspected) exposure to other viral communicable diseases; Z66 Do not resuscitate; R74.0 Nonspecific elevation of levels of transaminase and lactic acid dehydrogenase [LDH]; J44.9 Chronic obstructive pulmonary disease, unspecified; G20 Parkinson's disease; G47.33 Obstructive sleep apnea (adult) (pediatric); K76.0 Fatty (change of) liver, not elsewhere classified; F32.9 Major depressive disorder, single episode, unspecified; G89.29 Other chronic pain; M19.011 Primary osteoarthritis, right shoulder; K21.9 Gastro-esophageal reflux disease without esophagitis; Z79.82 Long term (current) use of aspirin; Z90.49 Acquired absence of other specified parts of digestive tract; Z87.891 Personal history of nicotine dependence; Z98.51 Tubal ligation status
CPT/HCPCS: 36415; 36600; 51701; 71045; 71275; 74181; 76705; 80053; 80074; 81003; 81015; 82607; 82746; 82977; 83605; 83690; 84145; 85025; 86780; 87040; 87086; 87149; 87389; 87635; 93005; 94640; 96361; 96365; 96367; J0692; J1200; J1650; J1885; J2185; J2270; J2765; J3490; J7620; Q9967; U0003